=== PATIENT | female | born 1960 | race American Indian/Alaskan Native ===

== ENCOUNTER → 2017-10-29 | Outpatient (CLI) | payer OTHER ==
[~2017-10-29] MED LIST: ALPR.25 PO; AMLO5 PO; AMOCLA600S PO; AMOCLA875 PO; AMOX1XR PO; ASPI325 PO; ASPI325B; AZIT200SU PO; CONEST.625; DIAZ5; DIAZ5 PO; ESCI10 PO; ESCI20 PO; GABA100 PO; GLIP10; HYDACE10B PO; HYDACE5 PO; HYDGUAL120 PO; L-THYROXINE; LEVSOD100; LEVSOD100 PO; LEVSOD112 PO; Macrobid 100 M100 MG PO; NEOSPORIN68 ML; OMEP40CA12 PO; OTC EYE DROPS; OXYACE5T PO; OXYB5; Omeprazole20 M1 PO; PHENA200 PO; PIOG45; PIOG45 PO; PROACE100; SERT25; SULTRIDS PO; TIMO.5OPSO; TIMO.5OPSO OD; TIMO.5OPSO OS; VALS80; VALS80 PO
== END | disposition home or self-care (01) ==
LOC: LAB 16:19
DX: L02.92 Furuncle, unspecified (principal)
CPT/HCPCS: 87070; 87075; 87205

== ENCOUNTER → 2018-06-16 | Outpatient (CLI) | payer OTHER ==
[2018-06-16 13:19] LABS: Alanine Aminotransfer (ALT/SGP 19 U/L (12-78); Albumin, Blood 3.8 g/dL (3.4-5.0); Albumin/Globulin Ratio 1.2 (0.8-1.8); Alk Phos 105 U/L (50-136); Anion Gap 9 mmol/L (6-16); Aspartate Aminotrans (AST/SGOT 24 U/L (12-37); Bilirubin, Total 0.9 mg/dL (0.1-1.0); Blood Urea Nitrogen 5 mg/dL (8-24); Bun/Creatinine Ratio 6.1 (12.0-20.0); CO2, Blood 27 mmol/L (21-32); Calcium, Blood 8.7 mg/dL (8.5-10.1); Chloride, Blood 107 mmol/L (98-108); Creatinine, Blood 0.82 mg/dL (0.40-1.00); Globulin, Blood 3.1 g/dL (2.2-4.0); Glomerular Filtration Rate >60 (60-); Glucose, Blood 138 mg/dL (70-99); Potassium, Blood 3.5 mmol/L (3.5-5.5); Sodium, Blood 143 mmol/L (136-145); Total Protein, Blood 6.9 g/dL (6.4-8.2)
== END | disposition home or self-care (01) ==
LOC: LAB SHORT 12:36 → LAB 12:36
PROVIDERS: Internal Medicine Hematology & Oncology
DX: D51.8 Other vitamin B12 deficiency anemias (principal); E78.5 Hyperlipidemia, unspecified
CPT/HCPCS: 80053; 82607; 82746

== ENCOUNTER → 2018-10-07 | Outpatient (CLI) | payer OTHER ==
[2018-10-07 12:33] LABS: Source, Urine Clean Catch
[2018-10-07 15:20] LABS: Bilirubin, Urine Neg (Neg); Blood, Urine 1+ (Neg); Glucose Qualitative, Urine Neg (Neg); Ketones, Urine Neg (Neg); Leukocyte Esterase, Urine 1+ (Neg); Nitrite, Urine Neg (Neg); Protein, Urine Neg (Neg); Specific Gravity, Urine 1.005 (1.003-1.022); Urobilinogen, Urine NORM (Normal); pH, Urine 6.5 (5.0-8.0)
[2018-10-07 15:53] LABS: Appearance, Urine Clear (Clear); Color, Urine Yellow (P-Yellow)
[2018-10-07 15:54] LABS: Bacteria Mod /hpf; Squamous Epithelial Cells Few /hpf (Few)
== END | disposition home or self-care (01) ==
LOC: LAB 11:50 → LAB SHORT 11:50
PROVIDERS: Internal Medicine Hematology & Oncology
DX: N39.0 Urinary tract infection, site not specified (principal); M54.5 Low back pain
CPT/HCPCS: 81001; 87077; 87086; 87186

== ENCOUNTER → 2018-12-29 | Outpatient (CLI) | payer OTHER ==
[2018-12-29 13:50] LABS: U Amphetamine Screen Not Detected; U Barbituate Screen Not Detected; U Benzodiazapine Screen DETECTED; U Buprenorphine Screen Not Detected; U Cannabinoids Screen Not Detected; U Cocaine Screen Not Detected; U Methadone Screen Not Detected; U Methamphetamine Screen Not Detected; U Opiates Screen DETECTED; U Oxycodone Screen Not Detected; U Phencyclidine Screen Not Detected; U Propoxyphene Screen Not Detected
== END | disposition home or self-care (01) ==
LOC: LAB 12:16 → LAB SHORT 12:16
PROVIDERS: Internal Medicine Hematology & Oncology
DX: Z51.81 Encounter for therapeutic drug level monitoring (principal); F11.20 Opioid dependence, uncomplicated; Z79.899 Other long term (current) drug therapy

== ENCOUNTER → 2019-09-01 | Outpatient (CLI) | payer OTHER ==
[2019-09-01 12:34] LABS: Alanine Aminotransfer (ALT/SGP 18 U/L (12-78); Albumin, Blood 3.9 g/dL (3.4-5.0); Albumin/Globulin Ratio 1.2 (0.8-1.8); Alk Phos 123 U/L (50-136); Anion Gap 6 mmol/L (6-16); Aspartate Aminotrans (AST/SGOT 27 U/L (12-37); Bilirubin, Total 1.3 mg/dL (0.1-1.0); Blood Urea Nitrogen 6 mg/dL (8-24); Bun/Creatinine Ratio 7.8 (12.0-20.0); CO2, Blood 30 mmol/L (21-32); Calcium, Blood 8.9 mg/dL (8.5-10.1); Chloride, Blood 106 mmol/L (98-108); Creatinine, Blood 0.77 mg/dL (0.40-1.00); Globulin, Blood 3.2 g/dL (2.2-4.0); Glomerular Filtration Rate >60 (60-); Glucose, Blood 130 mg/dL (70-99); Potassium, Blood 3.5 mmol/L (3.5-5.5); Sodium, Blood 142 mmol/L (136-145); Total Protein, Blood 7.1 g/dL (6.4-8.2)
== END | disposition home or self-care (01) ==
LOC: LAB SHORT 11:57 → LAB 11:57
PROVIDERS: Internal Medicine Hematology & Oncology
DX: M25.50 Pain in unspecified joint (principal)
CPT/HCPCS: 80053

== ENCOUNTER 2020-04-26 03:11 | Emergency (ER) | payer OTHER ==
[~2020-04-26] VITALS: Ht 165.1 cm; Wt 99.8 kg
== END 2020-04-26 04:00 | disposition home or self-care (01) ==
LOC: ER 03:11
DX: G89.29 Other chronic pain (principal); M54.9 Dorsalgia, unspecified; Z91.040 Latex allergy status; Z88.8 Allergy status to other drugs, medicaments and biological substances; Z79.899 Other long term (current) drug therapy; E11.9 Type 2 diabetes mellitus without complications
CPT/HCPCS: 96372; 99283-25; J1885

== ENCOUNTER 2021-02-09 12:36 | Emergency (ER) | payer OTHER ==
[~2021-02-09] VITALS: Ht 172.7 cm; Wt 83.9 kg
[2021-02-09 13:07] LABS: BASOPHILS ABSOLUTE AUTO 0.02 K/mm3 (0.00-0.23); BASOPHILS PERCENT AUTO 0 % (0-2); EOSINOPHILS ABSOLUTE AUTO 0.05 K/mm3 (0.00-0.68); EOSINOPHILS PERCENT AUTO 1 % (0-6); Hematocrit 45.1 % (33.0-51.0); Hemoglobin 16.5 g/dL (11.5-16.0); IMMATURE GRAN ABSOLUTE AUTO 0.01 K/mm3 (0.00-0.10); IMMATURE GRAN PERCENT AUTO 0 % (0-1); LYMPHOCYTES PERCENT AUTO 46 % (21-46); MONOCYTES ABSOLUTE AUTO 0.39 K/mm3 (0.16-1.47); MONOCYTES PERCENT AUTO 8 % (4-13); Mean Corpuscular HGB 33.6 pg (26.0-34.0); Mean Corpuscular HGB Conc 36.6 g/dL (31.5-36.5); Mean Corpuscular Volume 92 fL (80-100); Mean Platelet Volume 9.9 fL (9.1-12.4); NEUTROPHILS ABSOLUTE AUTO 2.17 K/mm3 (1.96-9.15); NEUTROPHILS PERCENT AUTO 45 % (41-73); Platelet Count 134 K/mm3 (150-400); RDW Coefficient Variation 11.8 % (11.7-14.2); RDW Standard Deviation 39.7 fL (35.1-46.3); Red Blood Cell Count 4.91 M/mm3 (3.80-5.20); White Blood Cell Count 4.84 K/mm3 (4.00-11.30)
[2021-02-09 13:19] LABS: International Normalized Ratio 1.16; Prothrombin Time Results 12.4 Sec (9.7-11.5)
[2021-02-09 13:21] LABS: Source, Urine Catheter
[2021-02-09 13:25] LABS: Appearance, Urine Hazy (Clear); Blood, Urine 5+ (Neg); Color, Urine Amber (P-Yellow); Glucose Qualitative, Urine Neg (Neg); Ketones, Urine 4+ (Neg); Leukocyte Esterase, Urine 2+ (Neg); Nitrite, Urine Pos (Neg); Protein, Urine 3+ (Neg); Urobilinogen, Urine 2+ (Normal)
[2021-02-09 13:47] LABS: Bilirubin, Urine 1+ (Neg)
[2021-02-09 13:50] LABS: Alanine Aminotransfer (ALT/SGP 23 U/L (12-78); Albumin, Blood 3.9 g/dL (3.4-5.0); Albumin/Globulin Ratio 1.1 (0.8-1.8); Alk Phos 63 U/L (50-136); Anion Gap 8 mmol/L (6-16); Aspartate Aminotrans (AST/SGOT 33 U/L (12-37); Bilirubin, Total 1.6 mg/dL (0.1-1.0); Blood Urea Nitrogen 14 mg/dL (8-24); Bun/Creatinine Ratio 14.5 (12.0-20.0); CO2, Blood 24 mmol/L (21-32); Calcium, Blood 8.6 mg/dL (8.5-10.1); Chloride, Blood 107 mmol/L (98-108); Creatinine, Blood 0.97 mg/dL (0.40-1.00); Ethanol (Alcohol), Blood, Med <3 mg/dL; Globulin, Blood 3.6 g/dL (2.2-4.0); Glomerular Filtration Rate >60 (60-); Glucose, Blood 139 mg/dL (70-99); Potassium, Blood 3.1 mmol/L (3.5-5.5); Sodium, Blood 139 mmol/L (136-145); Total Protein, Blood 7.5 g/dL (6.4-8.2); Troponin I 0.019 ng/mL (0.000-0.040)
[2021-02-09 13:51] LABS: Bacteria Many /hpf; Red Blood Cells, Urine TNTC /hpf (0-2); Squamous Epithelial Cells Many /hpf (Few)
[2021-02-09 13:58] LABS: U Amphetamine Screen Not Detected; U Barbituate Screen Not Detected; U Benzodiazapine Screen DETECTED; U Buprenorphine Screen Not Detected; U Cannabinoids Screen Not Detected; U Cocaine Screen Not Detected; U Methadone Screen Not Detected; U Methamphetamine Screen Not Detected; U Opiates Screen Not Detected; U Oxycodone Screen Not Detected; U Phencyclidine Screen Not Detected; U Propoxyphene Screen Not Detected
[2021-02-09] MEDS ORDERED: NITR100CA PO (15:17)
== END 2021-02-09 15:50 | disposition home or self-care (01) ==
LOC: ER 12:36
PROVIDERS: Emergency Medicine
DX: N39.0 Urinary tract infection, site not specified (principal); R55 Syncope and collapse; R41.82 Altered mental status, unspecified; E11.9 Type 2 diabetes mellitus without complications; Z79.899 Other long term (current) drug therapy
CPT/HCPCS: 36415; 70450; 74177; 80053; 80061; 81001; 82140; 82652; 83036; 83605; 84443; 84484; 85025; 85610; 85730; 87077; 87086; 87186; 93005; 93010; 99284-25; A9270; G0480; J7030; P9612; Q9967

== ENCOUNTER 2021-04-17 01:18 | Emergency (ER) | payer OTHER ==
[~2021-04-17] VITALS: Ht 162.6 cm; Wt 94.3 kg
[~2021-04-17 01:18] MED LIST changes: +NITR100CA PO
[2021-04-17] MEDS ORDERED: PEPCID40 MG PO (01:30)
[2021-04-17] MEDS ORDERED: ZANAFLEX PO (01:32)
[2021-04-17] MEDS ORDERED: LOSA50 PO (01:32)
[2021-04-17 02:15] LABS: Calcium, Ionized (POC) 1.08 mmol/L (1.10-1.46); Chloride (POC) 102 mmol/L (98-108); Creatinine (POC) 0.8 mg/dL (0.6-1.0); Glucose (ISTAT POC) 140 mg/dL (70-99); Hemoglobin (POC) 15.6 g/dL (12.0-16.0); Potassium (POC) 3.2 mmol/L (3.5-5.5); Sodium (POC) 140 mmol/L (135-148); Total CO2 (POC) 26 mmol/L (21-32)
[2021-04-17] MEDS ORDERED: ZOLP5 PO (03:05)
== END 2021-04-17 03:25 | disposition home or self-care (01) ==
LOC: ER 01:18
PROVIDERS: Emergency Medicine
DX: F41.9 Anxiety disorder, unspecified (principal); G47.00 Insomnia, unspecified; E87.6 Hypokalemia; Z79.899 Other long term (current) drug therapy
CPT/HCPCS: 80047; 85014; 96374; 99284-25; A9270; J2060

== ENCOUNTER 2021-12-11 19:15 | Inpatient (IN) | payer OTHER ==
[~2021-12-11] VITALS: Ht 162.6 cm; Wt 89.8 kg
[~2021-12-11 19:15] MED LIST changes: +LOSA50 PO; +PEPCID40 MG PO; +ZANAFLEX PO; +ZOLP5 PO
[2021-12-11] MEDS ORDERED: ESCI10 PO (19:37)
[2021-12-11] MEDS ORDERED: LOSARTAN PO (19:37)
[2021-12-11] MEDS ORDERED: IBUP400 PO (19:38)
[2021-12-11] MEDS ORDERED: Masophen500 MG PO (19:39)
[2021-12-11 20:08] LABS: BASOPHILS PERCENT AUTO 0 % (0-2); EOSINOPHILS ABSOLUTE AUTO 0.02 K/mm3 (0.00-0.68); EOSINOPHILS PERCENT AUTO 1 % (0-6); Hematocrit 41.3 % (33.0-51.0); Hemoglobin 14.6 g/dL (11.5-16.0); IMMATURE GRAN ABSOLUTE AUTO 0.01 K/mm3 (0.00-0.10); IMMATURE GRAN PERCENT AUTO 0 % (0-1); LYMPHOCYTES ABSOLUTE AUTO 1.28 K/mm3 (0.84-5.20); LYMPHOCYTES PERCENT AUTO 42 % (21-46); MONOCYTES ABSOLUTE AUTO 0.19 K/mm3 (0.16-1.47); MONOCYTES PERCENT AUTO 6 % (4-13); Mean Corpuscular HGB 32.4 pg (26.0-34.0); Mean Corpuscular HGB Conc 35.4 g/dL (31.5-36.5); Mean Corpuscular Volume 92 fL (80-100); Mean Platelet Volume 10.3 fL (9.1-12.4); NEUTROPHILS ABSOLUTE AUTO 1.53 K/mm3 (1.96-9.15); NEUTROPHILS PERCENT AUTO 51 % (41-73); Platelet Count 124 K/mm3 (150-400); RDW Coefficient Variation 12.8 % (11.7-14.2); RDW Standard Deviation 42.5 fL (35.1-46.3); Red Blood Cell Count 4.51 M/mm3 (3.80-5.20); White Blood Cell Count 3.03 K/mm3 (4.00-11.30)
[2021-12-11 20:23] LABS: Alanine Aminotransfer (ALT/SGP 21 U/L (12-78); Albumin, Blood 3.5 g/dL (3.4-5.0); Albumin/Globulin Ratio 1.2 (0.8-1.8); Alk Phos 62 U/L (50-136); Anion Gap 10 mmol/L (6-16); Aspartate Aminotrans (AST/SGOT 27 U/L (12-37); Bilirubin, Total 1.8 mg/dL (0.1-1.0); Blood Urea Nitrogen 11 mg/dL (8-24); CO2, Blood 26 mmol/L (21-32); Calcium, Blood 8.6 mg/dL (8.5-10.1); Chloride, Blood 103 mmol/L (98-108); Creatinine, Blood 0.78 mg/dL (0.40-1.00); Glomerular Filtration Rate >60 (60-); Glucose, Blood 190 mg/dL (70-99); Sodium, Blood 139 mmol/L (136-145); Total Protein, Blood 6.5 g/dL (6.4-8.2)
[2021-12-12] MEDS ORDERED: FAMO20 PO (01:25)
[2021-12-12 03:36] LABS: BASOPHILS ABSOLUTE AUTO 0.01 K/mm3 (0.00-0.23); BASOPHILS PERCENT AUTO 0 % (0-2); EOSINOPHILS ABSOLUTE AUTO 0.02 K/mm3 (0.00-0.68); EOSINOPHILS PERCENT AUTO 1 % (0-6); Hematocrit 41.4 % (33.0-51.0); Hemoglobin 14.9 g/dL (11.5-16.0); IMMATURE GRAN PERCENT AUTO 0 % (0-1); LYMPHOCYTES ABSOLUTE AUTO 1.63 K/mm3 (0.84-5.20); LYMPHOCYTES PERCENT AUTO 41 % (21-46); MONOCYTES ABSOLUTE AUTO 0.26 K/mm3 (0.16-1.47); MONOCYTES PERCENT AUTO 7 % (4-13); Mean Corpuscular HGB 32.5 pg (26.0-34.0); Mean Corpuscular Volume 90 fL (80-100); Mean Platelet Volume 10.4 fL (9.1-12.4); NEUTROPHILS ABSOLUTE AUTO 2.02 K/mm3 (1.96-9.15); NEUTROPHILS PERCENT AUTO 51 % (41-73); Platelet Count 145 K/mm3 (150-400); RDW Coefficient Variation 12.7 % (11.7-14.2); RDW Standard Deviation 41.3 fL (35.1-46.3); Red Blood Cell Count 4.59 M/mm3 (3.80-5.20); White Blood Cell Count 3.94 K/mm3 (4.00-11.30)
[2021-12-12 03:54] LABS: Anion Gap 9 mmol/L (6-16); Blood Urea Nitrogen 10 mg/dL (8-24); Bun/Creatinine Ratio 14.5 (12.0-20.0); CO2, Blood 26 mmol/L (21-32); Calcium, Blood 8.7 mg/dL (8.5-10.1); Chloride, Blood 104 mmol/L (98-108); Creatinine, Blood 0.69 mg/dL (0.40-1.00); Glomerular Filtration Rate >60 (60-); Glucose, Blood 125 mg/dL (70-99); Sodium, Blood 139 mmol/L (136-145)
--- NOTE | 2021-12-12 05:51 | NUR ---
SHIFT SUMMARY PT ALERT AND ORIENTED X 4. HR STABLE. BP STABLE. NO CP OR PRESURE. PHARMACIST NOTIFIED OF CRITICAL APTT. PLAN TO CONT HEPARIN GTT, SEE EHR. PT ABLE TO TURN SELF IN BED. SBA TO COMMODE. INITIAL ADMISSION SCREENING NOT FINISHED D/T PT NOT KNOWING ALL ALLERGIES. PT STATED "ALLERGIC TO AN ANTIBIOTIC BUT UNSURE WHAT ONE, HAS SEVERE REACTION TO MEDICATION." PT REPORTS PAIN THAT IS CHRONIC, MEDICATED PER EMAR. PT REPORTS RELIEF. OXYGEN SATURATION MAINTAINED ABOVE 95% ON RA. CALL LIGHT WITHIN REACH. PT NPO SINCE MIDNIGHT. WILL CONT TO MONITOR UNTIL REPORT GIVEN TO DAYSHIFT RN.
[2021-12-12 09:55] LABS: CHOL/HDL RATIO 2.6; Cholesterol 151 mg/dL (50-200); HDL Cholesterol 57 mg/dL (>39); LDL/HDL RATIO 1.4; Low Density Lipoprotein Chol 79 mg/dL (0-110); Thyroid Stimulating Hormone 0.091 uIU/mL (0.360-4.800); Triglycerides 73 mg/dL (30-160); Very Low Density Lipoprot Chol 14 mg/dL (6-32)
[2021-12-12 10:25] LABS: Influenza A, PCR NEGATIVE (NEGATIVE); Influenza B, PCR NEGATIVE (NEGATIVE); Resp Syncytial Virus, PCR NEGATIVE (NEGATIVE); SARS-Cov-2 (COVID-19) PCR, MMC NEGATIVE (NEGATIVE)
[2021-12-12 13:09] LABS: Source, Urine Clean Catch
[2021-12-12 13:42] LABS: U Amphetamine Screen Not Detected; U Barbituate Screen Not Detected; U Benzodiazapine Screen DETECTED; U Buprenorphine Screen Not Detected; U Cannabinoids Screen Not Detected; U Cocaine Screen Not Detected; U Methadone Screen Not Detected; U Methamphetamine Screen Not Detected; U Opiates Screen DETECTED; U Oxycodone Screen Not Detected; U Phencyclidine Screen Not Detected; U Propoxyphene Screen Not Detected
[2021-12-12 14:17] LABS: Bilirubin, Urine Neg (Neg); Blood, Urine Neg (Neg); Glucose Qualitative, Urine Neg (Neg); Ketones, Urine 4+ (Neg); Leukocyte Esterase, Urine Neg (Neg); Nitrite, Urine Neg (Neg); Protein, Urine Neg (Neg); Urobilinogen, Urine 2+ (Normal)
[2021-12-12 14:18] LABS: Appearance, Urine Clear (Clear); Color, Urine Amber (P-Yellow)
--- NOTE | 2021-12-12 15:55 | NUR ---
END OF SHIFT SUMMARY: PATIENT IS ALERT AND ORIENTED, ANXIETY HAS RESOLVED AFTER CATHETERIZATION. ANGIO, NO STENTS IN PLACE DIET ORDERED PATIENT EATING NOW. PATIENT HAS BEEN SINUS 60-80'S, DENIES CHEST PAIN OR SOB. NO LONGER HAVING THE NAUSEA SHE HAD AT ARRIVAL. PATIENT PAIN CONTROLLED VIA EMAR MEDICATIONS. AMBULATED TO BATHROOM AND NO WORRIES, THE 2ND TR BAND THAT IS ON THE RADIAL SITE HAS BEEN REMOVED, AND 1ST TR BAND WHICH IS COVERING THE OPSITE STILL INFLATTED WITH THE ARRIVAL AIR. ARMBOARD IN PLACE, EDUCATION GIVEN ON IMPORTANCE OF REHABILITATING SITE. PATIENT TO STAY OVERNIGHT FOR OBSERVATION. HAS BEEN HAVING BM'S AND URINATING. FLUIDS HAVE BEEN RUNNING AT 125 SINCE THE START OF SHIFT, ROUGHLY 2L WELL ORAL INTAKE. WILL CONTINUE TO MONITOR AT THIS TIME.
[2021-12-12 16:25] LABS: Anion Gap 9 mmol/L (6-16); Blood Urea Nitrogen 8 mg/dL (8-24); Bun/Creatinine Ratio 10.2 (12.0-20.0); CO2, Blood 21 mmol/L (21-32); Calcium, Blood 8.3 mg/dL (8.5-10.1); Chloride, Blood 109 mmol/L (98-108); Creatinine, Blood 0.78 mg/dL (0.40-1.00); Glomerular Filtration Rate >60 (60-); Glucose, Blood 186 mg/dL (70-99); Potassium, Blood 3.6 mmol/L (3.5-5.5); Sodium, Blood 139 mmol/L (136-145)
--- NOTE | 2021-12-12 23:00 | NUR ---
TR BAND REMOVAL 2 ML OF AIR REMOVED FROM TR BAND Q15-30 MINUTES UNTIL ALL AIR REMOVED STARTING AT 2000. TR BAND DEFLATED AT 2130. TR BAND IN PLACE FOR 1 HOUR POST DEFLATION. SITE CLEANED WITH CHLORAPREP AND TEGARDERM PLACED OVER SITE. PULSES STRONG. NO HEMATOMA FORMATION. SITE WNL. ARM BOARD IN PLACE. WILL CONT TO MONITOR.
[2021-12-13 03:47] LABS: BASOPHILS ABSOLUTE AUTO 0.02 K/mm3 (0.00-0.23); BASOPHILS PERCENT AUTO 1 % (0-2); EOSINOPHILS ABSOLUTE AUTO 0.05 K/mm3 (0.00-0.68); EOSINOPHILS PERCENT AUTO 2 % (0-6); Hemoglobin 13.4 g/dL (11.5-16.0); IMMATURE GRAN PERCENT AUTO 0 % (0-1); LYMPHOCYTES ABSOLUTE AUTO 1.49 K/mm3 (0.84-5.20); LYMPHOCYTES PERCENT AUTO 47 % (21-46); MONOCYTES ABSOLUTE AUTO 0.27 K/mm3 (0.16-1.47); MONOCYTES PERCENT AUTO 9 % (4-13); Mean Corpuscular HGB 32.9 pg (26.0-34.0); Mean Corpuscular HGB Conc 35.3 g/dL (31.5-36.5); Mean Corpuscular Volume 93 fL (80-100); Mean Platelet Volume 10.2 fL (9.1-12.4); NEUTROPHILS ABSOLUTE AUTO 1.34 K/mm3 (1.96-9.15); NEUTROPHILS PERCENT AUTO 42 % (41-73); Platelet Count 114 K/mm3 (150-400); RDW Coefficient Variation 13.2 % (11.7-14.2); RDW Standard Deviation 45.1 fL (35.1-46.3); Red Blood Cell Count 4.07 M/mm3 (3.80-5.20); White Blood Cell Count 3.17 K/mm3 (4.00-11.30)
[2021-12-13 04:05] LABS: Anion Gap 6 mmol/L (6-16); Blood Urea Nitrogen 12 mg/dL (8-24); Bun/Creatinine Ratio 14.9 (12.0-20.0); CO2, Blood 27 mmol/L (21-32); Calcium, Blood 7.9 mg/dL (8.5-10.1); Chloride, Blood 110 mmol/L (98-108); Creatinine, Blood 0.81 mg/dL (0.40-1.00); Glomerular Filtration Rate >60 (60-); Glucose, Blood 171 mg/dL (70-99); Potassium, Blood 3.4 mmol/L (3.5-5.5); Sodium, Blood 143 mmol/L (136-145)
--- NOTE | 2021-12-13 05:44 | NUR ---
SHIFT SUMMARY PT ALERT AND ORIENTED X 4. HR BRADYCARDIC WHILE ASLEEP, SEE EHR. PT IN NSR IN 60'S-70'S WHEN AWAKE. BP STABLE. OXYGEN SATURATION MAINTAINED ABOVE 92% ON RA. NO CP OR PRESSURE. R RADIAL SITE WNL. TR BAND RECOVERED, SEE NOTES. R RADIAL PULSE STRONG. NO HEMATOMA FORMATION. ARM BOARD IN PLACE. PT HAD 10 BEAT RUN OF VTACH, ASYMTPOMATIC VSS. PHYSICIAN NOTIFIED AND ORDERS FOR AM MAG LEVEL AND BNP. PT SBA TO BATHROOM. ABLE TO TURN SELF IN BED NEEDED. NS GTT AT 125 ML/HR. WILL CONT TO MONITOR UNTIL REPORT GIVEN TO DEEPA RN.
--- NOTE | 2021-12-13 06:56 | NUR ---
UPDATE PT VOMITTED AFTER HAVING ONE 20 MEQ POSTASSIUM PO. PT UNABLE TO TOLERATE TEXTURE/TASTE. DR. JENNINGS NOTIFIED, ORDERS FOR 40 MEQ IV ONCE.
--- NOTE | 2021-12-13 07:18 | NUR ---
Late Note. On 12/12/21, I provided a spiritual care visit for pt. Pt admits to being scared and nervous about an upcoming angiogram for later in the day. I provide prayer and emotional support. Pt voices appreciation and states that she is much more at peace and that it was perfect timing that I would stop by and pray with her. I will continue to remain available to pt and family.
[2021-12-13] MEDS ORDERED: ASPI81CH PO (10:06)
[2021-12-13] MEDS ORDERED: CEPH500 PO (10:07)
[2021-12-13] MEDS ORDERED: ATOR10 PO (10:07)
[2021-12-13] MEDS ORDERED: CLOP75 PO (10:08)
[2021-12-13] MEDS ORDERED: METO25ER PO (10:09)
--- NOTE | 2021-12-13 10:57 | NUR ---
PT DISCHARGED TO HOME TODAY WITH DISCHARGE ORDERS. PT DENIES CHEST PAIN, MEDICATED FOR BACK PAIN X1. VITALS HAS BEEN STABLE. PT INDEPENDENT IN THE ROOM. ZIO PATCH PLACED PRIOR TO DC. PT TO FOLLOW UP WITH DR JENNINGS AND PCP WITHIN 2 WEEKS. ALL NEW MEDICATIONS AND DISCHARGE INSTRUCTIONS DISCLOSED WITH THE PT, PT VERBALIZED UNDERSTANDING. NO OTHER ISSUES REPORTED FOR THE SHIFT. ALL BELONGINGS SENT WITH THE PT, PT ACCOMPANIED BY PCT VIA WHEELCHAIR
--- NOTE | 2021-12-13 11:41 | NUR ---
Received referral from nurse care management assistant (Charlotte Larson) on 12/12/2021. Patient discharged 12/13/2021 with orders for home health and elected [facility]. Contacted patient at number provided on demographic sheet to further discuss the above. Patient is agreeable to the above. Discussed homebound status definition with patient. Patient verbalized understanding. Discussed what home health is vs what it is not (in home caregivers/housekeeping). Patient verbalized understanding. Discussed the next steps in the process of an initial assessment to determine frequency of visits. Again patient verbalized understanding. Offered a chance for patient to ask questions regarding the above of which there were none. Gathered all supporting documentation for referral (face sheet, face to face, med list, and H&P,) and sent to [facility] for review. No further interventions required. Lawanda Fung Referral Liaison
--- NOTE | 2021-12-13 11:44 | NUR ---
Patient is getting ready for d/c today. Patient states how meaningful the prayer was to her the prior day before surgery. I provide prayer and a blessing. Patient again responds with gratitude.
== END 2021-12-13 10:50 | disposition home or self-care (01) | DRG 281 ==
LOC: ER 19:15 → PCU 12-12 00:01
PROVIDERS: Emergency Medicine; Family Medicine; Internal Medicine Cardiovascular Disease; ADMIT Internal Medicine
PROC: 4A023N7 Measurement of Cardiac Sampling and Pressure, Left Heart, Percutaneous Approach (ICD-10-PCS; principal; 2021-12-12)
PROC: B2111ZZ Fluoroscopy of Multiple Coronary Arteries using Low Osmolar Contrast (ICD-10-PCS; 2021-12-12)
DX: I21.4 Non-ST elevation (NSTEMI) myocardial infarction (principal); I47.2 Ventricular tachycardia; N39.0 Urinary tract infection, site not specified; Z20.822 Contact with and (suspected) exposure to COVID-19; E87.6 Hypokalemia; Z68.31 Body mass index [BMI] 31.0-31.9, adult; E83.42 Hypomagnesemia; I25.10 Atherosclerotic heart disease of native coronary artery without angina pectoris; E11.9 Type 2 diabetes mellitus without complications; I10 Essential (primary) hypertension; E03.9 Hypothyroidism, unspecified; Z28.21 Immunization not carried out because of patient refusal; F41.9 Anxiety disorder, unspecified; M54.9 Dorsalgia, unspecified; F40.00 Agoraphobia, unspecified; G89.29 Other chronic pain; E66.9 Obesity, unspecified; Z60.2 Problems related to living alone; M79.7 Fibromyalgia; F32.A Depression, unspecified; Z88.8 Allergy status to other drugs, medicaments and biological substances; Z91.040 Latex allergy status; Z79.82 Long term (current) use of aspirin; Z79.899 Other long term (current) drug therapy; Z90.710 Acquired absence of both cervix and uterus
CPT/HCPCS: 0241U; 36415; 70450; 71045; 71260; 76937; 80048; 80053; 80061; 81003; 82947; 83735; 83880; 84443; 84484; 85025; 85520; 85730; 93005; 93010; 93246; 93306; 93454; 96374; 99152; 99153; 99285-25; A9270; C1769; C1887; C1894; J1644; J2250; J3010; J3475; J3480; J7030; J7050; Q9967

== ENCOUNTER 2022-01-18 13:24 | Emergency (ER) | payer OTHER ==
[~2022-01-18] VITALS: Ht 162.6 cm; Wt 85.7 kg
[~2022-01-18 13:24] MED LIST changes: +ASPI81CH PO; +ATOR10 PO; +CEPH500 PO; +CLOP75 PO; +FAMO20 PO; +IBUP400 PO; +LOSARTAN PO; +METO25ER PO; +Masophen500 MG PO
[2022-01-18 14:53] LABS: BASOPHILS ABSOLUTE AUTO 0.01 K/mm3 (0.00-0.23); BASOPHILS PERCENT AUTO 0 % (0-2); EOSINOPHILS ABSOLUTE AUTO 0.04 K/mm3 (0.00-0.68); EOSINOPHILS PERCENT AUTO 1 % (0-6); Hematocrit 41.9 % (33.0-51.0); Hemoglobin 14.7 g/dL (11.5-16.0); IMMATURE GRAN PERCENT AUTO 0 % (0-1); LYMPHOCYTES ABSOLUTE AUTO 1.17 K/mm3 (0.84-5.20); LYMPHOCYTES PERCENT AUTO 29 % (21-46); MONOCYTES ABSOLUTE AUTO 0.28 K/mm3 (0.16-1.47); MONOCYTES PERCENT AUTO 7 % (4-13); Mean Corpuscular HGB 32.9 pg (26.0-34.0); Mean Corpuscular HGB Conc 35.1 g/dL (31.5-36.5); Mean Corpuscular Volume 94 fL (80-100); Mean Platelet Volume 9.8 fL (9.1-12.4); NEUTROPHILS ABSOLUTE AUTO 2.49 K/mm3 (1.96-9.15); NEUTROPHILS PERCENT AUTO 62 % (41-73); Platelet Count 110 K/mm3 (150-400); RDW Coefficient Variation 12.7 % (11.7-14.2); RDW Standard Deviation 44.1 fL (35.1-46.3); Red Blood Cell Count 4.47 M/mm3 (3.80-5.20); White Blood Cell Count 3.99 K/mm3 (4.00-11.30)
[2022-01-18 15:25] LABS: Alanine Aminotransfer (ALT/SGP 21 U/L (12-78); Albumin, Blood 3.6 g/dL (3.4-5.0); Albumin/Globulin Ratio 1.1 (0.8-1.8); Alk Phos 84 U/L (50-136); Anion Gap 9 mmol/L (6-16); Aspartate Aminotrans (AST/SGOT 22 U/L (12-37); Bilirubin, Total 1.6 mg/dL (0.1-1.0); Blood Urea Nitrogen 11 mg/dL (8-24); Bun/Creatinine Ratio 15.1 (12.0-20.0); CO2, Blood 27 mmol/L (21-32); Calcium, Blood 8.6 mg/dL (8.5-10.1); Chloride, Blood 104 mmol/L (98-108); Creatinine, Blood 0.73 mg/dL (0.40-1.00); Globulin, Blood 3.4 g/dL (2.2-4.0); Glomerular Filtration Rate >60 (60-); Glucose, Blood 136 mg/dL (70-99); Potassium, Blood 3.6 mmol/L (3.5-5.5); Sodium, Blood 140 mmol/L (136-145)
[2022-01-18] MEDS ORDERED: LIDO700A20 TOP (19:18)
[2022-01-18] MEDS ORDERED: Robaxin750 MG PO (19:18)
== END 2022-01-18 20:38 | disposition home or self-care (01) ==
LOC: ER 13:24
PROVIDERS: Physician Assistant
DX: M25.532 Pain in left wrist (principal); M25.531 Pain in right wrist; M25.512 Pain in left shoulder; M25.511 Pain in right shoulder; R20.8 Other disturbances of skin sensation; E03.9 Hypothyroidism, unspecified; I10 Essential (primary) hypertension; I25.2 Old myocardial infarction; K21.9 Gastro-esophageal reflux disease without esophagitis; E11.9 Type 2 diabetes mellitus without complications; Z79.899 Other long term (current) drug therapy; Z91.040 Latex allergy status
CPT/HCPCS: 71045; 72141; 80053; 84484; 85025; 93005; 93010; 96374; 96375; 99284-25; J2060; J2270

== ENCOUNTER → 2022-05-07 | Outpatient (CLI) | payer OTHER ==
[~2022-05-07] MED LIST changes: +LIDO700A20 TOP; +QUETIAPINE FUMA50 M2 PO; +Robaxin750 MG PO; +SEROQUEL100 MG PO
[2022-05-07 17:48] LABS: Source, Urine Clean Catch
[2022-05-07 19:23] LABS: Appearance, Urine Clear (Clear); Bilirubin, Urine Neg (Neg); Blood, Urine 1+ (Neg); Color, Urine Yellow (P-Yellow); Glucose Qualitative, Urine Neg (Neg); Ketones, Urine 1+ (Neg); Leukocyte Esterase, Urine 2+ (Neg); Nitrite, Urine Neg (Neg); Protein, Urine 1+ (Neg); Urobilinogen, Urine NORM (Normal)
[2022-05-07 19:41] LABS: Bacteria Few /hpf; Mucus Mod (0-Heavy); Red Blood Cells, Urine 0-2 /hpf (0-2); Squamous Epithelial Cells Few /hpf (Few)
== END ==
LOC: LAB SHORT 10:25 → LAB 10:25
PROVIDERS: Nurse Practitioner Family
DX: R30.0 Dysuria (principal)
CPT/HCPCS: 81001

== ENCOUNTER 2024-02-22 06:08 | Emergency (ER) | payer OTHER ==
[~2024-02-22] VITALS: Ht 160 cm; Wt 99.8 kg
[~2024-02-22 06:08] MED LIST changes: +ACET325 PO; +DILT30 PO; -LEVSOD112 PO; +LEVSOD150 PO; -Masophen500 MG PO
[2024-02-22] MEDS ORDERED: HYDROcodone 10-APAP 325 TAB PO ONE (08:30)
[2024-02-22 08:42] LABS: BASOPHILS ABSOLUTE AUTO 0.01 K/mm3 (0.00-0.23); BASOPHILS PERCENT AUTO 0 % (0-2); EOSINOPHILS ABSOLUTE AUTO 0.08 K/mm3 (0.00-0.68); EOSINOPHILS PERCENT AUTO 2 % (0-6); Hematocrit 44.8 % (33.0-51.0); Hemoglobin 16.2 g/dL (11.5-16.0); IMMATURE GRAN ABSOLUTE AUTO 0.01 K/mm3 (0.00-0.10); IMMATURE GRAN PERCENT AUTO 0 % (0-1); LYMPHOCYTES ABSOLUTE AUTO 1.64 K/mm3 (0.84-5.20); LYMPHOCYTES PERCENT AUTO 32 % (21-46); MONOCYTES PERCENT AUTO 6 % (4-13); Mean Corpuscular HGB 32.7 pg (26.0-34.0); Mean Corpuscular HGB Conc 36.2 g/dL (31.5-36.5); Mean Corpuscular Volume 91 fL (80-100); Mean Platelet Volume 10.7 fL (9.1-12.4); NEUTROPHILS ABSOLUTE AUTO 3.12 K/mm3 (1.96-9.15); NEUTROPHILS PERCENT AUTO 60 % (41-73); Platelet Count 162 K/mm3 (150-400); RDW Standard Deviation 39.7 fL (35.1-46.3); Red Blood Cell Count 4.95 M/mm3 (3.80-5.20); White Blood Cell Count 5.16 K/mm3 (4.00-11.30)
[2024-02-22 08:54] LABS: Albumin, Blood 4.2 g/dL (3.4-5.0); Albumin/Globulin Ratio 1.1 (0.8-1.8); Bilirubin, Total 1.2 mg/dL (0.1-1.0); Bun/Creatinine Ratio 13.9 (12.0-20.0); Calcium, Blood 9.7 mg/dL (8.5-10.1); Creatinine, Blood 0.79 mg/dL (0.40-1.00); Globulin, Blood 3.7 g/dL (2.2-4.0); Potassium, Blood 3.4 mmol/L (3.5-5.5); Total Protein, Blood 7.9 g/dL (6.4-8.2)
[2024-02-22 12:38] LABS: Source, Urine Clean Catch
[2024-02-22 12:43] LABS: Appearance, Urine Clear (Clear); Bilirubin, Urine Neg (Neg); Blood, Urine Neg (Neg); Color, Urine Yellow (P-Yellow); Glucose Qualitative, Urine 1+ (Neg); Ketones, Urine 2+ (Neg); Leukocyte Esterase, Urine 2+ (Neg); Nitrite, Urine Neg (Neg); Protein, Urine Neg (Neg); Specific Gravity, Urine 1.015 (1.003-1.022); Urobilinogen, Urine NORM (Normal)
[2024-02-22 12:52] LABS: Bacteria Few /hpf; Mucus Light (0-Heavy); Squamous Epithelial Cells Few /hpf (Few)
[2024-02-22 12:56] LABS: U Amphetamine Screen Not Detected; U Barbituate Screen Not Detected; U Benzodiazapine Screen Not Detected; U Buprenorphine Screen Not Detected; U Cannabinoids Screen Not Detected; U Cocaine Screen Not Detected; U Methadone Screen Not Detected; U Methamphetamine Screen Not Detected; U Opiates Screen DETECTED; U Oxycodone Screen Not Detected; U Phencyclidine Screen Not Detected
[2024-02-22] MEDS ORDERED: Clopidogrel Bisulfate 75 MG Tab PO SCH (15:10)
[2024-02-22] MEDS ORDERED: Aspirin 81 MG TabEC PO SCH (15:10)
[2024-02-22] MEDS ORDERED: Acetaminophen 500 MG Tab PO PRN (15:10)
[2024-02-22] MEDS ORDERED: Losartan Potassium 25 MG Tab PO SCH (15:10)
[2024-02-22] MEDS ORDERED: HYDROcodone 10-APAP 325 TAB PO PRN (15:15)
[2024-02-22] MEDS ORDERED: Ondansetron 4 MG SoluTab SL ONE (16:50)
[2024-02-22 16:51] VITALS: BP 149/98
[2024-02-23] MEDS ORDERED: Levothyroxine Sodium 0.1 MG Tab PO SCH (06:00)
[2024-02-25] MEDS ORDERED: TRAZ50 PO (23:50)
[2024-02-26] MEDS ORDERED: QUET100 PO (11:30)
[2024-02-26] MEDS ORDERED: METF500 PO (11:30)
[2024-02-26] MEDS ORDERED: DILT120 PO (11:35)
== END 2024-02-22 17:15 | disposition other institution (70) ==
LOC: ER 06:08 → EOR 06:09 → ER 06:09
PROVIDERS: Emergency Medicine
DX: F32.A Depression, unspecified (principal); E11.65 Type 2 diabetes mellitus with hyperglycemia; Z88.8 Allergy status to other drugs, medicaments and biological substances; Z91.040 Latex allergy status; Z79.899 Other long term (current) drug therapy; Z79.82 Long term (current) use of aspirin; Z79.02 Long term (current) use of antithrombotics/antiplatelets; I10 Essential (primary) hypertension; E03.9 Hypothyroidism, unspecified; K21.9 Gastro-esophageal reflux disease without esophagitis; G47.00 Insomnia, unspecified
CPT/HCPCS: 36415; 80053; 81001; 85025; 87086; 93005; 93010; 99285-25; A9270; G0378

== ENCOUNTER 2024-03-21 12:38 | Inpatient (IN) | payer OTHER ==
[~2024-03-21] VITALS: Ht 160 cm; Wt 102.1 kg
[~2024-03-21 12:38] MED LIST changes: +DILT120 PO; -LOSA50 PO; +LOSARTAN POTAS100 M1 PO; +METF500 PO; +QUET100 PO; +TRAZ50 PO
[2024-03-21] MEDS ORDERED: HYDROcodone 10-APAP 325 TAB PO PRN (15:25)
[2024-03-21 16:43] LABS: BASOPHILS ABSOLUTE AUTO 0.01 K/mm3 (0.00-0.23); BASOPHILS PERCENT AUTO 0 % (0-2); EOSINOPHILS ABSOLUTE AUTO 0.04 K/mm3 (0.00-0.68); EOSINOPHILS PERCENT AUTO 1 % (0-6); Hematocrit 42.6 % (33.0-51.0); Hemoglobin 14.8 g/dL (11.5-16.0); IMMATURE GRAN ABSOLUTE AUTO 0.01 K/mm3 (0.00-0.10); IMMATURE GRAN PERCENT AUTO 0 % (0-1); LYMPHOCYTES ABSOLUTE AUTO 1.47 K/mm3 (0.84-5.20); LYMPHOCYTES PERCENT AUTO 37 % (21-46); MONOCYTES ABSOLUTE AUTO 0.26 K/mm3 (0.16-1.47); MONOCYTES PERCENT AUTO 7 % (4-13); Mean Corpuscular HGB 32.3 pg (26.0-34.0); Mean Corpuscular HGB Conc 34.7 g/dL (31.5-36.5); Mean Corpuscular Volume 93 fL (80-100); Mean Platelet Volume 9.9 fL (9.1-12.4); NEUTROPHILS ABSOLUTE AUTO 2.14 K/mm3 (1.96-9.15); NEUTROPHILS PERCENT AUTO 54 % (41-73); Platelet Count 140 K/mm3 (150-400); RDW Coefficient Variation 12.8 % (11.7-14.2); RDW Standard Deviation 43.7 fL (35.1-46.3); Red Blood Cell Count 4.58 M/mm3 (3.80-5.20); White Blood Cell Count 3.93 K/mm3 (4.00-11.30)
[2024-03-21 17:11] LABS: Albumin, Blood 3.8 g/dL (3.4-5.0); Albumin/Globulin Ratio 1.1 (0.8-1.8); Bilirubin, Total 0.9 mg/dL (0.1-1.0); Bun/Creatinine Ratio 13.3 (12.0-20.0); Calcium, Blood 8.7 mg/dL (8.5-10.1); Creatinine, Blood 0.75 mg/dL (0.40-1.00); Globulin, Blood 3.5 g/dL (2.2-4.0); Potassium, Blood 3.5 mmol/L (3.5-5.5); Total Protein, Blood 7.3 g/dL (6.4-8.2)
[2024-03-21 17:17] LABS: CHOL/HDL RATIO 1.8; Cholesterol 136 mg/dL (50-200); HDL Cholesterol 76 mg/dL (>39); LDL/HDL RATIO 0.6; Low Density Lipoprotein Chol 44 mg/dL (0-110); Triglycerides 79 mg/dL (30-160); Very Low Density Lipoprot Chol 15 mg/dL (6-32)
[2024-03-21] MEDS ORDERED: HyDROXyzine HCl 25 MG Tab PO ONE (19:55)
[2024-03-21] MEDS ORDERED: LORazepam 1 MG Tab PO ONE (20:45)
[2024-03-21] MEDS ORDERED: QUEtiapine Fumarate 100 MG Tab PO ONE (23:25)
[2024-03-22 06:12] LABS: Source, Urine Clean Catch
[2024-03-22 06:14] LABS: Bilirubin, Urine Neg (Neg); Blood, Urine Neg (Neg); Glucose Qualitative, Urine Neg (Neg); Ketones, Urine 3+ (Neg); Leukocyte Esterase, Urine 3+ (Neg); Nitrite, Urine Neg (Neg); Protein, Urine Neg (Neg); Urobilinogen, Urine 1+ (Normal); pH, Urine 6.5 (5.0-8.0)
[2024-03-22 06:17] LABS: Appearance, Urine Hazy (Clear); Color, Urine Yellow (P-Yellow)
[2024-03-22 06:24] LABS: Bacteria Mod /hpf; Mucus Light (0-Heavy); Red Blood Cells, Urine 0-2 /hpf (0-2); Squamous Epithelial Cells Many /hpf (Few)
[2024-03-22 12:40] LABS: U Amphetamine Screen Not Detected; U Barbituate Screen Not Detected; U Benzodiazapine Screen DETECTED; U Buprenorphine Screen Not Detected; U Cannabinoids Screen Not Detected; U Cocaine Screen Not Detected; U Methadone Screen Not Detected; U Methamphetamine Screen Not Detected; U Opiates Screen DETECTED; U Oxycodone Screen Not Detected; U Phencyclidine Screen Not Detected
[2024-03-22] MEDS ORDERED: Acetaminophen 325 MG TABLET PO PRN (14:15)
[2024-03-22] MEDS ORDERED: CefTRIAXone Sodium 1,000 MG in NS 100 ML IV SCH (14:30)
[2024-03-22 15:00] LABS: Source, Urine Clean Catch
[2024-03-22 15:12] LABS: Appearance, Urine Clear (Clear); Bilirubin, Urine Neg (Neg); Blood, Urine Neg (Neg); Color, Urine Yellow (P-Yellow); Glucose Qualitative, Urine 3+ (Neg); Ketones, Urine 3+ (Neg); Leukocyte Esterase, Urine 1+ (Neg); Nitrite, Urine Neg (Neg); Protein, Urine 2+ (Neg); Specific Gravity, Urine 1.015 (1.003-1.022); Urobilinogen, Urine 1+ (Normal)
[2024-03-22 15:34] LABS: Bacteria Few /hpf; Red Blood Cells, Urine Not Seen /hpf (0-2); Squamous Epithelial Cells Few /hpf (Few)
[2024-03-22] MEDS ORDERED: Losartan Potassium 50 MG Tab PO SCH (16:00)
[2024-03-22] MEDS ORDERED: Insulin Human Lispro 100 Units/ML 3ML Syringe SC SCH (16:30)
[2024-03-22] MEDS ORDERED: DILT30 PO (17:17)
[2024-03-22 20:59] VITALS: BP 144/84
[2024-03-22] MEDS ORDERED: Lactobacil 2-S.Thermo-Bifido 1 1 Cap PO SCH (21:00)
[2024-03-22] MEDS ORDERED: Atorvastatin 10 MG Tab PO SCH (21:00)
[2024-03-22] MEDS ORDERED: QUEtiapine Fumarate 100 MG Tab PO SCH (21:00)
[2024-03-22] MEDS ORDERED: LORazepam 1 MG Tab PO ONE (22:25)
[2024-03-23 03:18] VITALS: BP 122/78
[2024-03-23] MEDS ORDERED: OLANZapine 5 MG Tab PO ONE (04:25)
[2024-03-23 05:47] LABS: Albumin, Blood 3.6 g/dL (3.4-5.0); Albumin/Globulin Ratio 1.1 (0.8-1.8); Bilirubin, Total 0.9 mg/dL (0.1-1.0); Calcium, Blood 8.9 mg/dL (8.5-10.1); Creatinine, Blood 0.78 mg/dL (0.40-1.00); Globulin, Blood 3.3 g/dL (2.2-4.0); Potassium, Blood 3.2 mmol/L (3.5-5.5); Total Protein, Blood 6.9 g/dL (6.4-8.2)
[2024-03-23] MEDS ORDERED: Levothyroxine Sodium 0.1 MG Tab PO SCH (06:00)
--- NOTE | 2024-03-23 06:36 | NUR ---
SHIFT SUMMARY PT ARRIVED TO ROOM 347 FROM THE ER VIA A WHEELCHAIR. TRANSFERED INDEPENDENTLY TO HOSPITAL BED. MONISHA IS A&OX4, VERY ANXIOUS. VSS ON RA. PT HAS DENIED ANY SI THIS SHIFT. C/O 8/10 PAIN IN HER LOWER BACK, HIPS, AND BLE, THIS IS CHRONIC PAIN. MANAGED WITH 10/325MG NORCO. PT AWAKE MOST OF THE NOC, STATES SHE TAKES 100MG OF SEROQUEL, THIS WAS DC'D HERE. ADMINISTERED 1MG PO ATIVAN, WITH NO EFFECT. CALLED DR TWICE TO GET OTHER MEDS ORDERED TO HELP HER SLEEP. FIRST TIME NO NEW MEDS WERE ODERED BY JANETH. I CALLED AGAIN, HE ORDERED 5 MG OF ZYPREXA. SBA WITH FWW TO BR. PT USES A CANEOR FWW AT BASELINE. PT HAS URGENCY WITH SOME INCONTINENCE, WENDI PAD IN PLACE AND CHANGED NEEDED. NO BM THIS SHIFT. SUICIDE PRECAUTIONS MAINTAINED. 1:1 SITTER AT BEDSIDE. BED IN LOWEST POSITION, CALL LIGHT WITHIN REACH.
[2024-03-23] MEDS ORDERED: Potassium Chloride 20 MEQ TabCR PO ONE (07:00)
[2024-03-23] MEDS ORDERED: Magnesium Sulf 2 GM/Water 50ML 50 ML IV ONE (08:00)
[2024-03-23 08:06] VITALS: BP 119/68
[2024-03-23] MEDS ORDERED: Aspirin 81 MG Chew PO SCH (09:00)
[2024-03-23] MEDS ORDERED: Clopidogrel Bisulfate 75 MG Tab PO SCH (09:00)
[2024-03-23] MEDS ORDERED: Losartan Potassium 50 MG Tab PO SCH (09:00)
[2024-03-23] MEDS ORDERED: dilTIAZem HCL 120 MG CAP.CD PO SCH (09:00)
[2024-03-23] MEDS ORDERED: Enoxaparin 40 MG/0.4 ML SYR SC SCH (09:00)
[2024-03-23] MEDS ORDERED: NS 250 ML IV PRN (09:00)
--- NOTE | 2024-03-23 10:34 | NUR ---
PATIENT STATED SHE NO LONGER WANTS TO HARM HERSELF. AND STATED, "SOMEONE WAS CALLING ME AND THIS WAS WHY I WANTED TO HARM MYSELF BEFORE COMING TO THE HOSPITAL." SHE STATED, "A PREVIOUS MIXING MACHINE OPERATOR CONTINUES TO CALL AND BOTHER HER.": ADVISED PATIENT TO CALL SUICIDE HOTLINE WHEN SHE FEELS UPSET AND CALL POLICE IF SOMEONE IS CONTINUALLY BOTHERING HER.
[2024-03-23 15:22] VITALS: BP 133/63
[2024-03-23] MEDS ORDERED: [UNRECOGNIZED DRUG - CODE] PO (19:16)
[2024-03-23 20:07] VITALS: BP 134/75
[2024-03-23] MEDS ORDERED: Magnesium Oxide 400 MG Tab PO SCH (21:00)
[2024-03-23] MEDS ORDERED: QUEtiapine Fumarate 100 MG Tab PO SCH (21:00)
[2024-03-24 06:12] VITALS: BP 134/58
--- NOTE | 2024-03-24 06:36 | NUR ---
SHIFT SUMMARY MONISHA IS A&OX4, ANXIOUS, PLEASANT AND COOPERATIVE WITH CARES. VSS ON RA. PT HAS DENIED ANY SI THIS SHIFT. C/O 8/10 PAIN IN HER LOWER BACK, HIPS, AND BLE, THIS IS CHRONIC PAIN. MANAGED WITH K-PAD AND 10/325MG PO NORCO. PT ABLE TO GET SOME SLEEP THIS SHIFT, VERY THANKFUL DR REORDERED HER SEROQUEL. SBA WITH FWW TO BR. PT USES A CANE OR FWW AT BASELINE. PT HAS URGENCY WITH SOME INCONTINENCE, WENDI PAD IN PLACE AND CHANGED NEEDED. NO BM THIS SHIFT. SUICIDE PRECAUTIONS MAINTAINED. 1:1 SITTER AT BEDSIDE. BED IN LOWEST POSITION, CALL LIGHT WITHIN REACH.
[2024-03-24 07:15] VITALS: BP 143/72
[2024-03-24 08:37] LABS: Potassium, Blood 3.5 mmol/L (3.5-5.5)
[2024-03-24] MEDS ORDERED: Citalopram Hydrobromide 20 MG Tab PO SCH (09:00)
[2024-03-24] MEDS ORDERED: Potassium Chloride 20 MEQ TabCR PO ONE (11:00)
[2024-03-24 16:10] VITALS: BP 139/85
[2024-03-24 17:28] LABS: SARS-Cov-2 (COVID-19) PCR, MMC NEGATIVE (NEGATIVE)
[2024-03-24 18:08] VITALS: BP 139/85
--- NOTE | 2024-03-24 18:52 | NUR ---
PATIENT IS ALERT AND ORIENTED TIMES THREE. DEPRESSION, UTI, NO TELEMETRY, RA, VSS, MOOD IMPROVING. DENIES, SI. TRANSFER TOMORROW TO [facility].
[2024-03-24 19:22] VITALS: BP 161/81
[2024-03-25 04:31] VITALS: BP 148/54
--- NOTE | 2024-03-25 06:44 | NUR ---
SHIFT SUMMARY MONISHA IS A&OX4, PLEASANT AND COOPERATIVE WITH CARES. SHE IS ANXIOUS AND NERVOUS ABOUT GOING TO INPATIENT PSYCH AT [facility] TODAY. VSS ON RA. PT HAS DENIED ANY SI THIS SHIFT. C/O 8/10 PAIN IN HER LOWER BACK, HIPS, AND BLE, THIS IS CHRONIC PAIN. MANAGED WITH K-PAD AND 10/325MG NORCO. PT TOLERATING A CONSISTENT CARB DIET, HS SNACKS GIVEN. PT WAS ABLE TO SLEEP THIS SHIFT, WITH 100 MG PO SEROQUEL. SBA WITH FWW TO BR. PT USES A CANE OR FWW AT BASELINE. PT HAS URGENCY WITH SOME INCONTINENCE, WENDI PAD IN PLACE AND CHANGED NEEDED. NO BM THIS SHIFT. SUICIDE PRECAUTIONS MAINTAINED. 1:1 SITTER AT BEDSIDE. BED IN LOWEST POSITION, CALL LIGHT WITHIN REACH.
[2024-03-25 07:02] VITALS: BP 137/66
--- NOTE | 2024-03-25 11:35 | NUR ---
PT DC'D WITH [facility] [employer] TO TRANSPORT TO [facility] ,PT LEFT AT 0807, WHEELCHAIR OUT TO POL[facility] [place]. BELONGINGS GIVEN TO SECURITY TO TRANSPORT WITH PT. CALLED REPORT TO FOSTER AT 1130. SENT PACKET WITH [facility]/TRANSPORT
== END 2024-03-25 08:06 | DRG 880 ==
LOC: ER 12:38 → EOR 12:39 → MEDS 12:39 → ENPENDDIS 03-24 16:41 → MEDS 03-25 08:06
PROVIDERS: Family Medicine; Student in an Organized Health Care Education/Training Program; ADMIT Internal Medicine
DX: F41.9 Anxiety disorder, unspecified (principal); R45.851 Suicidal ideations; N39.0 Urinary tract infection, site not specified; T23.101A Burn of first degree of right hand, unspecified site, initial encounter; F32.A Depression, unspecified; F43.10 Post-traumatic stress disorder, unspecified; R79.1 Abnormal coagulation profile; E03.9 Hypothyroidism, unspecified; E11.9 Type 2 diabetes mellitus without complications; I10 Essential (primary) hypertension; I25.2 Old myocardial infarction; E83.42 Hypomagnesemia; X08.8XXA Exposure to other specified smoke, fire and flames, initial encounter; Z88.8 Allergy status to other drugs, medicaments and biological substances; E66.9 Obesity, unspecified; Z91.040 Latex allergy status; Z79.899 Other long term (current) drug therapy; Z79.890 Hormone replacement therapy; Z79.82 Long term (current) use of aspirin; Z79.02 Long term (current) use of antithrombotics/antiplatelets; Z79.84 Long term (current) use of oral hypoglycemic drugs; Z79.891 Long term (current) use of opiate analgesic; M79.7 Fibromyalgia; M54.9 Dorsalgia, unspecified; G89.29 Other chronic pain; Z90.710 Acquired absence of both cervix and uterus; Z68.39 Body mass index [BMI] 39.0-39.9, adult
CPT/HCPCS: 36415; 80048; 80053; 80061; 81001; 82947; 83036; 83735; 84132; 84436; 84443; 85025; 86592; 87077; 87086; 87186; 93005; 93010; 96365; 96375; 97116; 97162; 97530; 99285-25; A9270; G0378; J0696; J1650; J3475; J7050; U0002

== ENCOUNTER 2024-04-19 18:15 | Emergency (ER) | payer OTHER ==
[~2024-04-19] VITALS: Ht 160 cm; Wt 99.8 kg
[~2024-04-19 18:15] MED LIST changes: +[UNRECOGNIZED DRUG - CODE] PO
[2024-04-19 18:23] VITALS: BP 141/83
[2024-04-19] MEDS ORDERED: LORazepam 2 MG/ML 1ML Injection IV ONE (18:40)
[2024-04-19 19:42] LABS: BASOPHILS ABSOLUTE AUTO 0.03 K/mm3 (0.00-0.23); BASOPHILS PERCENT AUTO 1 % (0-2); EOSINOPHILS ABSOLUTE AUTO 0.07 K/mm3 (0.00-0.68); EOSINOPHILS PERCENT AUTO 2 % (0-6); Hematocrit 43.2 % (33.0-51.0); Hemoglobin 14.7 g/dL (11.5-16.0); IMMATURE GRAN PERCENT AUTO 0 % (0-1); LYMPHOCYTES ABSOLUTE AUTO 1.55 K/mm3 (0.84-5.20); LYMPHOCYTES PERCENT AUTO 43 % (21-46); MONOCYTES ABSOLUTE AUTO 0.22 K/mm3 (0.16-1.47); MONOCYTES PERCENT AUTO 6 % (4-13); Mean Corpuscular HGB 31.7 pg (26.0-34.0); Mean Corpuscular Volume 93 fL (80-100); Mean Platelet Volume 10.1 fL (9.1-12.4); NEUTROPHILS ABSOLUTE AUTO 1.76 K/mm3 (1.96-9.15); NEUTROPHILS PERCENT AUTO 49 % (41-73); Platelet Count 184 K/mm3 (150-400); RDW Coefficient Variation 12.9 % (11.7-14.2); RDW Standard Deviation 43.9 fL (35.1-46.3); Red Blood Cell Count 4.63 M/mm3 (3.80-5.20); White Blood Cell Count 3.63 K/mm3 (4.00-11.30)
[2024-04-19 20:19] LABS: Source, Urine Clean Catch
[2024-04-19 20:24] LABS: Bilirubin, Urine Neg (Neg); Blood, Urine 1+ (Neg); Glucose Qualitative, Urine Neg (Neg); Ketones, Urine 1+ (Neg); Leukocyte Esterase, Urine 3+ (Neg); Nitrite, Urine Pos (Neg); Protein, Urine Neg (Neg); Urobilinogen, Urine NORM (Normal); pH, Urine 6.5 (5.0-8.0)
[2024-04-19 20:29] LABS: Appearance, Urine Hazy (Clear); Color, Urine Yellow (P-Yellow)
[2024-04-19 20:34] LABS: White Blood Cells, Urine 25-50 /hpf (0-5)
[2024-04-19 20:35] LABS: Bacteria Many /hpf; Squamous Epithelial Cells Few /hpf (Few); Transitional Epithelial Cells Rare /hpf (0-Rare)
[2024-04-19] MEDS ORDERED: CefTRIAXone Sodium 1,000 MG in NS 100 ML IV ONE (20:40)
[2024-04-19 21:10] LABS: Magnesium, Blood 1.4 mg/dL (1.6-2.4)
[2024-04-19 21:14] LABS: Albumin, Blood 3.5 g/dL (3.4-5.0); Albumin/Globulin Ratio 1.1 (0.8-1.8); Bilirubin, Total 0.9 mg/dL (0.1-1.0); Bun/Creatinine Ratio 9.4 (12.0-20.0); Calcium, Blood 8.3 mg/dL (8.5-10.1); Creatinine, Blood 0.85 mg/dL (0.40-1.00); Globulin, Blood 3.2 g/dL (2.2-4.0); Potassium, Blood 3.6 mmol/L (3.5-5.5); Thyroid Stimulating Hormone 4.29 uIU/mL (0.360-4.800); Total Protein, Blood 6.7 g/dL (6.4-8.2)
[2024-04-19] MEDS ORDERED: HYDROcodone 10-APAP 325 TAB PO ONE (22:00)
[2024-04-20] MEDS ORDERED: CefTRIAXone Sodium 1,000 MG in NS 50 ML IV ONE (11:05)
[2024-04-20] MEDS ORDERED: HYDROcodone 10-APAP 325 TAB PO ONE ×2 (11:25→19:55)
[2024-04-20] MEDS ORDERED: HyDROXyzine HCl 25 MG Tab PO ONE (16:40)
[2024-04-20] MEDS ORDERED: Mag Sulfate 1 GM/D5% 100ML 100 ML IV ONE (16:40)
[2024-04-20] MEDS ORDERED: Ketorolac Tromethamine 30mg Vial IV ONE (18:00)
[2024-04-20] MEDS ORDERED: HYDROcodone 5-APAP 325 TAB PO ONE (20:15)
[2024-04-20] MEDS ORDERED: CEFD300 PO (21:40)
[2024-04-21] MEDS ORDERED: Cefdinir 300 MG Cap PO SCH (09:00)
== END 2024-04-20 21:50 | disposition home or self-care (01) ==
LOC: ER 18:15
PROVIDERS: Emergency Medicine
DX: S93.602A Unspecified sprain of left foot, initial encounter (principal); F41.9 Anxiety disorder, unspecified; N39.0 Urinary tract infection, site not specified; E11.9 Type 2 diabetes mellitus without complications; I10 Essential (primary) hypertension; E03.9 Hypothyroidism, unspecified; I25.2 Old myocardial infarction; K21.9 Gastro-esophageal reflux disease without esophagitis; G47.00 Insomnia, unspecified; W18.30XA Fall on same level, unspecified, initial encounter; Z79.82 Long term (current) use of aspirin; Z79.02 Long term (current) use of antithrombotics/antiplatelets; Z79.84 Long term (current) use of oral hypoglycemic drugs; Z79.899 Other long term (current) drug therapy; Z91.040 Latex allergy status; Z88.8 Allergy status to other drugs, medicaments and biological substances
CPT/HCPCS: 73620; 80053; 81001; 83735; 84443; 84484; 85025; 93005; 93010; 96365; 96366; 96367; 96375; 99285-25; A9270; J0696; J1885; J2060; J3475

== ENCOUNTER 2024-05-20 03:26 | Emergency (ER) | payer OTHER ==
[~2024-05-20 03:26] MED LIST changes: +CEFD300 PO
[2024-05-20 06:09] VITALS: BP 116/70
[2024-05-21] MEDS ORDERED: SYNTHROID100 M14 PO (03:58)
[2024-05-21] MEDS ORDERED: LOSA50 PO (03:59)
[2024-05-21] MEDS ORDERED: QUET25 PO (03:59)
== END 2024-05-20 06:51 | disposition home or self-care (01) ==
LOC: ER 03:26
DX: F32.A Depression, unspecified (principal); E11.9 Type 2 diabetes mellitus without complications; I10 Essential (primary) hypertension; E03.9 Hypothyroidism, unspecified; Z91.199 Patient's noncompliance with other medical treatment and regimen due to unspecified reason; Z79.02 Long term (current) use of antithrombotics/antiplatelets; Z79.82 Long term (current) use of aspirin; Z79.899 Other long term (current) drug therapy; Z79.84 Long term (current) use of oral hypoglycemic drugs; Z91.040 Latex allergy status; Z88.8 Allergy status to other drugs, medicaments and biological substances
CPT/HCPCS: 99284

== ENCOUNTER 2024-05-21 01:15 | Observation (INO) | payer OTHER ==
[~2024-05-21] VITALS: Ht 160 cm; Wt 99.8 kg
[2024-05-21 02:06] LABS: Source, Urine Clean Catch
[2024-05-21 02:11] LABS: Blood, Urine 2+ (Neg); Glucose Qualitative, Urine 1+ (Neg); Ketones, Urine 3+ (Neg); Leukocyte Esterase, Urine 3+ (Neg); Nitrite, Urine Pos (Neg); Protein, Urine 3+ (Neg); Specific Gravity, Urine 1.025 (1.003-1.022); Urobilinogen, Urine 1+ (Normal)
[2024-05-21 02:14] LABS: BASOPHILS ABSOLUTE AUTO 0.02 K/mm3 (0.00-0.23); BASOPHILS PERCENT AUTO 0 % (0-2); EOSINOPHILS ABSOLUTE AUTO 0.04 K/mm3 (0.00-0.68); EOSINOPHILS PERCENT AUTO 1 % (0-6); Hematocrit 46.2 % (33.0-51.0); Hemoglobin 16.7 g/dL (11.5-16.0); IMMATURE GRAN ABSOLUTE AUTO 0.01 K/mm3 (0.00-0.10); IMMATURE GRAN PERCENT AUTO 0 % (0-1); LYMPHOCYTES ABSOLUTE AUTO 2.47 K/mm3 (0.84-5.20); LYMPHOCYTES PERCENT AUTO 37 % (21-46); MONOCYTES ABSOLUTE AUTO 0.42 K/mm3 (0.16-1.47); MONOCYTES PERCENT AUTO 6 % (4-13); Mean Corpuscular HGB 32.5 pg (26.0-34.0); Mean Corpuscular HGB Conc 36.1 g/dL (31.5-36.5); Mean Corpuscular Volume 90 fL (80-100); NEUTROPHILS ABSOLUTE AUTO 3.77 K/mm3 (1.96-9.15); NEUTROPHILS PERCENT AUTO 56 % (41-73); Platelet Count 197 K/mm3 (150-400); RDW Coefficient Variation 12.7 % (11.7-14.2); RDW Standard Deviation 41.6 fL (35.1-46.3); Red Blood Cell Count 5.14 M/mm3 (3.80-5.20); White Blood Cell Count 6.73 K/mm3 (4.00-11.30)
[2024-05-21 02:23] LABS: Appearance, Urine Hazy (Clear); Bilirubin, Urine 1+ (Neg); Color, Urine Amber (P-Yellow)
[2024-05-21 02:25] LABS: Bacteria Mod /hpf; Red Blood Cells, Urine 0-2 /hpf (0-2); Squamous Epithelial Cells Mod /hpf (Few); White Blood Cells, Urine TNTC /hpf (0-5)
[2024-05-21 02:27] LABS: Acetaminophen, Random <2.0 ug/mL (10.0-30.0); Alanine Aminotransfer (ALT/SGP 26 U/L (12-78); Albumin, Blood 4.4 g/dL (3.4-5.0); Albumin/Globulin Ratio 1.2 (0.8-1.8); Alk Phos 74 U/L (50-136); Anion Gap 16 mmol/L (3-11); Aspartate Aminotrans (AST/SGOT 31 U/L (12-37); Bilirubin, Total 1.4 mg/dL (0.1-1.0); Blood Urea Nitrogen 12 mg/dL (8-24); Bun/Creatinine Ratio 12.8 (12.0-20.0); CO2, Blood 21 mmol/L (21-32); Calcium, Blood 9.4 mg/dL (8.5-10.1); Chloride, Blood 106 mmol/L (98-108); Creatinine, Blood 0.94 mg/dL (0.40-1.00); Ethanol (Alcohol), Blood, Med <3 mg/dL; Globulin, Blood 3.8 g/dL (2.2-4.0); Glomerular Filtration Rate 69 (60-); Glucose, Blood 185 mg/dL (70-99); Potassium, Blood 3.6 mmol/L (3.5-5.5); Salicylate <1.7 mg/dL (2.8-20.0); Sodium, Blood 139 mmol/L (136-145); Total Protein, Blood 8.2 g/dL (6.4-8.2)
[2024-05-21 02:30] LABS: U Amphetamine Screen Not Detected; U Barbituate Screen Not Detected; U Benzodiazapine Screen Not Detected; U Buprenorphine Screen Not Detected; U Cannabinoids Screen Not Detected; U Cocaine Screen Not Detected; U Methadone Screen Not Detected; U Methamphetamine Screen Not Detected; U Opiates Screen DETECTED; U Oxycodone Screen DETECTED; U Phencyclidine Screen Not Detected
[2024-05-21] MEDS ORDERED: SYNTHROID100 M14 PO (03:58)
[2024-05-21] MEDS ORDERED: QUET25 PO (03:59)
[2024-05-21] MEDS ORDERED: LOSA50 PO (03:59)
[2024-05-21] MEDS ORDERED: QUEtiapine Fumarate 100 MG Tab PO ONE (04:05)
[2024-05-21] MEDS ORDERED: Cefdinir 300 MG Cap PO ONE (04:05)
[2024-05-21] MEDS ORDERED: HYDROcodone 10-APAP 325 TAB PO ONE (09:35)
[2024-05-21] MEDS ORDERED: HYDROcodone 10-APAP 325 TAB PO PRN (16:35)
[2024-05-21] MEDS ORDERED: QUEtiapine Fumarate 100 MG Tab PO SCH (21:00)
[2024-05-21] MEDS ORDERED: QUEtiapine Fumarate 25 MG Tab PO SCH (21:00)
[2024-05-21] MEDS ORDERED: Cefdinir 300 MG Cap PO SCH (21:00)
[2024-05-22 00:46] VITALS: BP 123/67
[2024-05-22] MEDS ORDERED: DiphenhydrAMINE HCL 25 MG Cap PO ONE (03:55)
--- NOTE | 2024-05-22 17:29 | NUR ---
SHIFT SUMMARY PT AA&OX4. PLEASANT AND COOPERATIVE WITH CARE. SPEECH ABUNDANT AND EYE CONTACT APPROPRIATE. DENIES AVH, SI. MOOD HAS FLUCTUATED FROM EUTHYMIC AND LAUGHING TO REPORTING HE FEELS "DEPRESSED" PT COMPLIANT WITH MEDICATIONS. HE HAS NOT REQUESTED ANY PRN. HE HAS BEEN UP FOR MEALS, SHOWERS, AND GROUPS. HE DENIES ANY CURRENT NEEDS OR CONCERNS, WILL CONTINUE WITH POC
== END 2024-05-22 10:05 | disposition home or self-care (01) ==
LOC: ER 01:15 → EOR 01:16
PROVIDERS: ADMIT Emergency Medicine
DX: F33.2 Major depressive disorder, recurrent severe without psychotic features (principal); S51.812A Laceration without foreign body of left forearm, initial encounter; R45.851 Suicidal ideations; E11.9 Type 2 diabetes mellitus without complications; I10 Essential (primary) hypertension; E03.9 Hypothyroidism, unspecified; G89.29 Other chronic pain; K21.9 Gastro-esophageal reflux disease without esophagitis; Z91.040 Latex allergy status; Z88.8 Allergy status to other drugs, medicaments and biological substances; Z79.899 Other long term (current) drug therapy; Z79.84 Long term (current) use of oral hypoglycemic drugs; X58.XXXA Exposure to other specified factors, initial encounter
CPT/HCPCS: 80053; 80320; 81001; 85025; 87086; 93005; 93010; 99285-25; A9270; G0378; G0480

== ENCOUNTER 2024-09-30 16:59 | Observation (INO) | payer OTHER ==
[~2024-09-30] VITALS: Ht 162.6 cm; Wt 88.9 kg
[~2024-09-30 16:59] MED LIST changes: +LOSA50 PO; +QUET25 PO; +SYNTHROID100 M14 PO
[2024-09-30 17:27] LABS: Source, Urine Clean Catch
[2024-09-30 17:30] LABS: Appearance, Urine Hazy (Clear); Bilirubin, Urine Neg (Neg); Blood, Urine 1+ (Neg); Color, Urine Amber (P-Yellow); Glucose Qualitative, Urine 3+ (Neg); Ketones, Urine 2+ (Neg); Leukocyte Esterase, Urine 3+ (Neg); Nitrite, Urine Pos (Neg); Protein, Urine 2+ (Neg); Specific Gravity, Urine 1.025 (1.003-1.022); Urobilinogen, Urine 1+ (Normal)
[2024-09-30 17:37] LABS: BASOPHILS ABSOLUTE AUTO 0.03 K/mm3 (0.00-0.23); BASOPHILS PERCENT AUTO 1 % (0-2); EOSINOPHILS ABSOLUTE AUTO 0.05 K/mm3 (0.00-0.68); EOSINOPHILS PERCENT AUTO 1 % (0-6); Hematocrit 49.1 % (33.0-51.0); Hemoglobin 17.6 g/dL (11.5-16.0); IMMATURE GRAN PERCENT AUTO 0 % (0-1); LYMPHOCYTES ABSOLUTE AUTO 2.02 K/mm3 (0.84-5.20); LYMPHOCYTES PERCENT AUTO 39 % (21-46); MONOCYTES ABSOLUTE AUTO 0.36 K/mm3 (0.16-1.47); MONOCYTES PERCENT AUTO 7 % (4-13); Mean Corpuscular HGB 32.7 pg (26.0-34.0); Mean Corpuscular HGB Conc 35.8 g/dL (31.5-36.5); Mean Corpuscular Volume 91 fL (80-100); Mean Platelet Volume 9.5 fL (9.1-12.4); NEUTROPHILS ABSOLUTE AUTO 2.78 K/mm3 (1.96-9.15); NEUTROPHILS PERCENT AUTO 53 % (41-73); Platelet Count 166 K/mm3 (150-400); RDW Coefficient Variation 13.2 % (11.7-14.2); RDW Standard Deviation 43.9 fL (35.1-46.3); Red Blood Cell Count 5.38 M/mm3 (3.80-5.20); White Blood Cell Count 5.24 K/mm3 (4.00-11.30)
[2024-09-30 17:40] LABS: White Blood Cells, Urine 25-50 /hpf (0-5)
[2024-09-30 17:41] LABS: Bacteria Many /hpf; Squamous Epithelial Cells Mod /hpf (Few)
[2024-09-30 17:43] LABS: U Amphetamine Screen Not Detected; U Barbituate Screen Not Detected; U Benzodiazapine Screen Not Detected; U Buprenorphine Screen Not Detected; U Cannabinoids Screen Not Detected; U Cocaine Screen Not Detected; U Methadone Screen Not Detected; U Methamphetamine Screen Not Detected; U Opiates Screen DETECTED; U Oxycodone Screen Not Detected; U Phencyclidine Screen Not Detected
[2024-09-30 18:00] LABS: Acetaminophen, Random <2.0 ug/mL (10.0-30.0); Alanine Aminotransfer (ALT/SGP 19 U/L (12-78); Albumin, Blood 4.3 g/dL (3.4-5.0); Albumin/Globulin Ratio 1.2 (0.8-1.8); Alk Phos 81 U/L (50-136); Anion Gap 14 mmol/L (3-11); Aspartate Aminotrans (AST/SGOT 25 U/L (12-37); Bilirubin, Total 1.3 mg/dL (0.1-1.0); Blood Urea Nitrogen 14 mg/dL (8-24); Bun/Creatinine Ratio 15.1 (12.0-20.0); CO2, Blood 20 mmol/L (21-32); Calcium, Blood 9.6 mg/dL (8.5-10.1); Chloride, Blood 106 mmol/L (98-108); Creatinine, Blood 0.93 mg/dL (0.40-1.00); Ethanol (Alcohol), Blood, Med <3 mg/dL; Globulin, Blood 3.7 g/dL (2.2-4.0); Glomerular Filtration Rate 69 (60-); Glucose, Blood 256 mg/dL (70-99); Potassium, Blood 3.6 mmol/L (3.5-5.5); Salicylate <1.7 mg/dL (2.8-20.0); Sodium, Blood 136 mmol/L (136-145)
[2024-09-30] MEDS ORDERED: HyDROXyzine HCl 25 MG Tab PO ONE (19:10)
[2024-09-30] MEDS ORDERED: OLANZapine 10 MG Tab PO ONE (19:10)
[2024-09-30 19:42] LABS: Source, Urine Fem Cath
[2024-09-30 19:49] LABS: Appearance, Urine Clear (Clear); Bilirubin, Urine Neg (Neg); Blood, Urine 2+ (Neg); Color, Urine Amber (P-Yellow); Glucose Qualitative, Urine 3+ (Neg); Ketones, Urine 3+ (Neg); Leukocyte Esterase, Urine 2+ (Neg); Nitrite, Urine Pos (Neg); Protein, Urine 2+ (Neg); Urobilinogen, Urine 1+ (Normal)
[2024-09-30 19:59] LABS: Bacteria Many /hpf; Renal Epithelial Rare /hpf (0-Rare); Squamous Epithelial Cells Not Seen /hpf (Few)
[2024-09-30] MEDS ORDERED: HYDROcodone 10-APAP 325 TAB PO PRN (20:25)
[2024-09-30] MEDS ORDERED: MetFORMIN HCl 500 mg PO SCH (20:30)
[2024-09-30] MEDS ORDERED: QUEtiapine Fumarate 100 MG Tab PO SCH (21:00)
[2024-09-30] MEDS ORDERED: Atorvastatin 10 MG Tab PO SCH (21:00)
[2024-09-30] MEDS ORDERED: QUEtiapine Fumarate 25 MG Tab PO SCH (21:00)
[2024-09-30] MEDS ORDERED: Cefdinir 300 MG Cap PO SCH (21:00)
[2024-10-01] MEDS ORDERED: Losartan Potassium 25 MG Tab PO SCH (09:00)
[2024-10-01] MEDS ORDERED: Aspirin 81 MG Chew PO SCH (09:00)
[2024-10-01] MEDS ORDERED: Aspirin 325 MG Tab PO SCH (09:00)
[2024-10-01] MEDS ORDERED: Citalopram Hydrobromide 20 MG Tab PO SCH (09:00)
[2024-10-01] MEDS ORDERED: dilTIAZem HCL 30 MG TAB PO SCH (09:00)
[2024-10-01] MEDS ORDERED: Levothyroxine Sodium 0.1 MG Tab PO SCH (09:00)
[2024-10-01] MEDS ORDERED: Clopidogrel Bisulfate 75 MG Tab PO SCH (09:00)
[2024-10-01] MEDS ORDERED: dilTIAZem HCL 120 MG CAP.CD PO SCH (13:30)
[2024-10-01] MEDS ORDERED: FLU VACC TS2024-25(6MOS UP)/PF 45 MCG/0.5 ML SYRINGE IM SCH (14:20)
[2024-10-01] MEDS ORDERED: Insulin Human Lispro 100 Units/ML 3ML Syringe SC SCH (16:30)
[2024-10-01] MEDS ORDERED: HyDROXyzine HCl 25 MG Tab PO ONE (17:45)
[2024-10-01] MEDS ORDERED: TIMO.25OPS BOTHEYES (19:56)
--- NOTE | 2024-10-01 20:22 | NUR ---
NEW ADMIT. PATIENT ADMITTED TO ROOM 346 FROM THE ER. PATEINT ARRIVED TO ROOM WITH 2 PERSONAL BELONGINGS BAG-LOCKED IN CUPBOARD IN ROOM. PATIENT ABLE TO TRANSFER FROM [facility] TO HOSPITAL BED INDEPENDENTLY WITH STEADY GAIT. THIS RN TO ASSUME PATIENT CARE.
[2024-10-01] MEDS ORDERED: Amoxicillin/Clavulanate K 875 MG Tab PO SCH (21:00)
[2024-10-01 21:15] VITALS: BP 149/93
--- NOTE | 2024-10-02 03:27 | NUR ---
HOSPITALIST CONTACTED. DR. KIRBY NOTIFIED OF PATIENT REPORTING DIARRHEA THAT STARTED AFTER ADMITTANCE, DR. KIRBY ORDERED FOR IMODIUM 2MG Q4P FOR DIARRHEA.
[2024-10-02] MEDS ORDERED: Loperamide HCl 2 MG Cap PO PRN (03:30)
[2024-10-02 05:10] VITALS: BP 143/82
[2024-10-02 05:49] LABS: Hematocrit 46.2 % (33.0-51.0); Hemoglobin 16.3 g/dL (11.5-16.0); Mean Corpuscular HGB 32.7 pg (26.0-34.0); Mean Corpuscular HGB Conc 35.3 g/dL (31.5-36.5); Mean Corpuscular Volume 93 fL (80-100); Mean Platelet Volume 9.9 fL (9.1-12.4); Platelet Count 162 K/mm3 (150-400); RDW Coefficient Variation 13.4 % (11.7-14.2); RDW Standard Deviation 44.9 fL (35.1-46.3); Red Blood Cell Count 4.99 M/mm3 (3.80-5.20); White Blood Cell Count 5.88 K/mm3 (4.00-11.30)
[2024-10-02 06:31] LABS: Magnesium, Blood 1.3 mg/dL (1.6-2.4); Thyroxine (T4) 6.8 ug/dL (4.8-13.9)
[2024-10-02 06:36] LABS: Albumin, Blood 3.8 g/dL (3.4-5.0); Anion Gap 11 mmol/L (3-11); Blood Urea Nitrogen 23 mg/dL (8-24); Bun/Creatinine Ratio 18.3 (12.0-20.0); CO2, Blood 24 mmol/L (21-32); Calcium, Blood 9.4 mg/dL (8.5-10.1); Chloride, Blood 104 mmol/L (98-108); Creatinine, Blood 1.26 mg/dL (0.40-1.00); Glomerular Filtration Rate 48 (60-); Glucose, Blood 197 mg/dL (70-99); Phosphorus, Blood 4.1 mg/dL (2.5-4.9); Potassium, Blood 3.2 mmol/L (3.5-5.5); Sodium, Blood 136 mmol/L (136-145)
--- NOTE | 2024-10-02 06:39 | NUR ---
SHIFT SUMMARY. PATIENT IS A&OX4, CALLS APPROPRIATELY AND IS ABLE TO MAKE HER NEEDS KNOWN. PATIENT HAS 1:1 SITTER D/T SI. PATIENT ADMITTED WITH HALLUCINATIONS. PATIENT REPORTS DIARRHEA THAT STARTED AFTER HER ARRIVAL TO THE HOSPITAL-PATIENT BELIEVES IT COULD BE D/T THE ABX-IMODIUM GIVEN PER ORDERS. PATIENT HAS RESTED WELL WITH RESPIRATIONS EQUAL AND UNLABORED. PATIENT IS CONTINENT AND USING THE BATHROOM WITH SUPERVISION. PATIENT DOES NOT HAVE IV ACCESS-ORDER IN PLACE. PATIENT TAKES MEDS WHOLE WITH WATER. PATIENT C/O BACK PAIN-MEDICATED PER ORDERS X2 THIS SHIFT. BED IS LOCKED IN THE LOWEST POSITION, PATIENT HAS SHORT CALL LIGHT FOR SI. SITTER IN VIEW.
[2024-10-02 07:30] VITALS: BP 148/96
[2024-10-02] MEDS ORDERED: Potassium Chloride 20 MEQ TabCR PO ONE (08:00)
[2024-10-02] MEDS ORDERED: Enoxaparin 40 MG/0.4 ML SYR SC SCH (09:00)
[2024-10-02] MEDS ORDERED: Magnesium Oxide 400 MG Tab PO SCH (09:00)
[2024-10-02] MEDS ORDERED: Losartan Potassium 50 MG Tab PO SCH (09:00)
[2024-10-02] MEDS ORDERED: Phenazopyridine HCl 100 MG Tab PO ONE (11:47)
[2024-10-02 16:38] VITALS: BP 127/79
--- NOTE | 2024-10-02 17:25 | NUR ---
SHIFT SUMMARY: PATIENT A/OX4, ANSWER TO QUESTIONS APPROPRIATELY AND ABLE TO MAKE NEEDS KNOWN. PATIENT REPORTS AUDITORY HALLUCINATION AND DENIES SI THIS SHIFT. PATIENT HAS 1:1 SITTER OUTSIDE HER ROOM FOR SAFETY. PATIENT REPORTS PAIN 8/10 TO L HIP/LOWER BACK AND FEET, MEDICATED X1 c PO NORCO c MOD EFFECT. PATIENT HAS FAIR APPETITE, CONTINENT OF BLADDER AND AMBULATES TO BATHROOM c SBA. PATIENT KIDNEY FUNCTIONS HAS TRENDING UP, PHARMACIST AND DR. ENGLE ARE AWARE OF THIS ISSUES. PATIENT RECEIVED OT DOSE OF PO PYRIDIUM. VITAL SIGNS REVIEWED. PATIENT HAS NO IV ACCESS PER ORDER.
[2024-10-02 19:53] VITALS: BP 143/82
[2024-10-02] MEDS ORDERED: Cefdinir 300 MG Cap PO SCH (21:00)
--- NOTE | 2024-10-03 04:03 | NUR ---
SHIFT SUMMARY ADMITTED FOR HALLUCINATIONS. FULL CODE. MODERATE SI PRECAUTIONS. SITTER IN PLACE. ON RA. A&O X4. ADA DIET. ACHS CBG'S - LOW SS. STANDBY ASSIST - BRP. PAIN MEDICATION GIVEN. SHE IS CONTINENT AND PLEASANT THIS SHIFT. SHE IS COOPERATING WITH CARE. SHE DENIES SI THIS SHIFT.
[2024-10-03 04:55] VITALS: BP 155/94
[2024-10-03 06:03] LABS: Albumin, Blood 3.5 g/dL (3.4-5.0); Anion Gap 11 mmol/L (3-11); Blood Urea Nitrogen 27 mg/dL (8-24); CO2, Blood 26 mmol/L (21-32); Calcium, Blood 9.1 mg/dL (8.5-10.1); Chloride, Blood 106 mmol/L (98-108); Creatinine, Blood 1.23 mg/dL (0.40-1.00); Glomerular Filtration Rate 49 (60-); Glucose, Blood 215 mg/dL (70-99); Magnesium, Blood 1.4 mg/dL (1.6-2.4); Phosphorus, Blood 3.9 mg/dL (2.5-4.9); Potassium, Blood 3.9 mmol/L (3.5-5.5); Sodium, Blood 139 mmol/L (136-145)
[2024-10-03 07:16] VITALS: BP 141/84
[2024-10-03] MEDS ORDERED: Magnesium Oxide 400 MG Tab PO SCH (08:00)
[2024-10-03 15:21] VITALS: BP 125/97
[2024-10-03 16:27] VITALS: BP 139/95
[2024-10-03] MEDS ORDERED: Propranolol HCL 20 MG TAB PO SCH (16:30)
--- NOTE | 2024-10-03 18:07 | NUR ---
SHIFT SUMMARY: PATIENT A/OX4, CALM, PLEASANT AND COOPERATIVE c CARE. PATIENT HAS GENERALIZED TREMORS, STATED "IT'S NOT NEW". DR ENGLE IS AWARE OF THIS ISSUE. PATIENT DENIES SI OR HARMING HERSELF/OTHERS, BUT REPORTS STILL HAVING AUDITORY HALLUCINATION. PATIENT ON LOW SI, 1:1 SITTER DC'D PER ORDER. PATIENT REPORTS 3 LOOSE STOOL THIS SHIFT, CONTINENT OF BOWEL/BLADDER, AMBULATES TO BATHROOM c SBA/FWW. PATIENT MEDICATED X2 FOR LOW BACK/HIPS AND FEET PAIN c MOD EFFECT. VITAL SIGNS REVIEWED. CALL LIGHT IN REACH.
[2024-10-03 19:55] VITALS: BP 144/81
[2024-10-04 03:55] VITALS: BP 136/82
--- NOTE | 2024-10-04 04:13 | NUR ---
SHIFT SUMMARY ADMITTED FOR HALLUCINATIONS. ALSO FOUND TO HAVE A UTI. FULL CODE. ANTIB RX PO ARE SCHEDULED. SHE WILL DC HOME. ADA DIET. ACHS - LOW SS. ON RA. A&O X4. CONTINENT. INDEPENDENT IN ROOM. SHE DENIES SI. HX OF DEPRESSION AND HALLUCINATIONS. NORCO AVAILABLE FOR CHRONIC BACK, HIP, AND LEG PAIN. SHE HAS A CAREGIVER AT HOME.
[2024-10-04 06:11] LABS: Bun/Creatinine Ratio 21.4 (12.0-20.0); Calcium, Blood 9.6 mg/dL (8.5-10.1); Creatinine, Blood 0.94 mg/dL (0.40-1.00); Magnesium, Blood 1.3 mg/dL (1.6-2.4); Potassium, Blood 3.8 mmol/L (3.5-5.5)
[2024-10-04 07:30] VITALS: BP 117/101
[2024-10-04] MEDS ORDERED: Magnesium Sulf 2 GM/Water 50ML 50 ML IV ONE (10:30)
[2024-10-04 14:34] VITALS: BP 121/54
[2024-10-04] MEDS ORDERED: Propranolol HCL 20 MG TAB PO SCH (16:30)
--- NOTE | 2024-10-04 17:33 | NUR ---
SHIFT SUMMARY: PATIENT A/OX4, CALM, PLEASANT AND COOPERATIVE c CARE. PATIENT ON LOW SI, DENIES SI THIS SHIFT. PATIENT MEDICATED X2 FOR CHRONIC BACK/HIPS AND FEET PAIN PER EMAR c GOOD EFFECT. PATIENT REPORTS AUDITORY HALLUCINATION AND TREMORS HAS IMPROVED TODAY. PATIENT VERBALIZED "I'M READY TO GO HOME TOMORROW." PATIENT HAS GOOD APPETITE, CONTINENT OF BLADDER, AMBULATES TO BATHROOM c SBA/FWW. PATIENT RECEIVED OT DOSE OF IV MAG SULFATE. VITAL SIGNS REVIEWED. PATIENT HAS NO COMPLAINTS OR DENIES NEW CONCERNED THIS SHIFT. CALL LIGHT IN REACH.
[2024-10-04 20:11] VITALS: BP 151/82
[2024-10-05 02:18] VITALS: BP 143/84
--- NOTE | 2024-10-05 04:02 | NUR ---
SHIFT SUMMARY PATIENT IS ALERT AND ORIENTED X4. PATIENT HAS BEEN PLEASENT AND COOPERATIVE WITH CARE. PATIENT IS ON LOW SI. DENIES SI THIS SHIFT. PATIENT MEDICATED FOR PAIN ONCE THIS SHIFT. PATIENT HAS HAD NO COMPLAINTS OF SOB, NAUSEA OR VOMITTING THIS SHIFT. PATIENT HAS REPORTED NO AUDITORY HALLUCINATIONS THIS SHIFT AND TREMORS HAVE IMPROVED. PATIENT HAS BEEN IND THIS SHIFT. VITAL SIGNS REVIEWED. PATIENT HAS NO NEW COMPLAINTS THIS SHIFT. BED IN LOCKED AND LOWEST POSITION. CALL LIGHT IN PLACE. WILL MONITOR UNTIL SHIFT CHANGE.
[2024-10-05 06:11] LABS: Hematocrit 43.3 % (33.0-51.0); Hemoglobin 15.5 g/dL (11.5-16.0); Mean Corpuscular HGB 33.2 pg (26.0-34.0); Mean Corpuscular HGB Conc 35.8 g/dL (31.5-36.5); Mean Corpuscular Volume 93 fL (80-100); Mean Platelet Volume 10.2 fL (9.1-12.4); Platelet Count 158 K/mm3 (150-400); RDW Coefficient Variation 13.1 % (11.7-14.2); RDW Standard Deviation 44.2 fL (35.1-46.3); Red Blood Cell Count 4.67 M/mm3 (3.80-5.20); White Blood Cell Count 5.31 K/mm3 (4.00-11.30)
[2024-10-05 06:52] LABS: Albumin, Blood 3.6 g/dL (3.4-5.0); Anion Gap 9 mmol/L (3-11); Blood Urea Nitrogen 19 mg/dL (8-24); Bun/Creatinine Ratio 20.3 (12.0-20.0); CO2, Blood 26 mmol/L (21-32); Calcium, Blood 9.9 mg/dL (8.5-10.1); Chloride, Blood 108 mmol/L (98-108); Creatinine, Blood 0.94 mg/dL (0.40-1.00); Glomerular Filtration Rate 68 (60-); Glucose, Blood 192 mg/dL (70-99); Magnesium, Blood 1.6 mg/dL (1.6-2.4); Phosphorus, Blood 3.5 mg/dL (2.5-4.9); Sodium, Blood 139 mmol/L (136-145)
[2024-10-05 07:39] VITALS: BP 135/72
[2024-10-05] MEDS ORDERED: QUEtiapine Fumarate 25 MG Tab PO PRN (13:20)
[2024-10-05] MEDS ORDERED: METF500 PO (13:57)
[2024-10-05] MEDS ORDERED: QUET25 PO (13:58)
[2024-10-05] MEDS ORDERED: CEFD300 PO (13:59)
[2024-10-05] MEDS ORDERED: VISBIOME 112.51 EACH PO (14:00)
[2024-10-05] MEDS ORDERED: Inderal 20 mg T20 MG PO (14:00)
--- NOTE | 2024-10-05 15:44 | NUR ---
SHIFT SUMMARY PT A&OX4 AND ANSWERS QUESTIONS APPROPRIATELY. PT RECEIVED PHYCH EVALUATION AND WAS CLEARED PRIOR TO D/C ORDERS. PT RECEIVED SCHEDULED AND PRN MEDICATIONS. PT VSS, NO COMPLAINTS OF CP/PRESSURE OR SOB. PT STABLE AND DISCHARGE ORDERS PLACED. DISCHARGE EDUCATIONS GIVEN. NO ACUTE EVENTS AT THIS TIME. PT DISCHARGED VIA W/C TO CAR. ALL BELONGINGS OUT OF ROOM AND W/ PATIENT.
== END 2024-10-05 14:18 | disposition home health service (06) ==
LOC: ER 16:59 → MEDS 17:00 → EOR 17:00 → MEDS 10-01 20:15
PROVIDERS: Internal Medicine; Physician Assistant; Student in an Organized Health Care Education/Training Program; ADMIT Emergency Medicine
DX: F33.3 Major depressive disorder, recurrent, severe with psychotic symptoms (principal); N39.0 Urinary tract infection, site not specified; N17.9 Acute kidney failure, unspecified; F43.12 Post-traumatic stress disorder, chronic; G30.9 Alzheimer's disease, unspecified; F02.A0 Dementia in other diseases classified elsewhere, mild, without behavioral disturbance, psychotic disturbance, mood disturbance, and anxiety; E11.9 Type 2 diabetes mellitus without complications; E03.9 Hypothyroidism, unspecified; I10 Essential (primary) hypertension; M79.7 Fibromyalgia; K21.9 Gastro-esophageal reflux disease without esophagitis; I25.2 Old myocardial infarction; Z79.02 Long term (current) use of antithrombotics/antiplatelets; Z79.890 Hormone replacement therapy; Z79.84 Long term (current) use of oral hypoglycemic drugs; Z79.82 Long term (current) use of aspirin; Z79.899 Other long term (current) drug therapy; Z91.040 Latex allergy status; Z88.8 Allergy status to other drugs, medicaments and biological substances; Z90.710 Acquired absence of both cervix and uterus
CPT/HCPCS: 36415; 80048; 80053; 80069; 80320; 81001; 81025; 82565; 82947; 83735; 84436; 84443; 85025; 85027; 87077; 87086; 87186; 93005; 93010; 96372; 97162; 97530; 99285-25; A9270; G0378; G0480; J1650; J3475; P9612

== ENCOUNTER 2024-10-24 21:50 | Inpatient (IN) | payer OTHER ==
[~2024-10-24] VITALS: Ht 160 cm; Wt 99.8 kg
[~2024-10-24 21:50] MED LIST changes: +Inderal 20 mg T20 MG PO; +TIMO.25OPS BOTHEYES; +VISBIOME 112.51 EACH PO
[2024-10-24] MEDS ORDERED: OLANZapine ODT 5 MG Tab PO ONE (22:30)
[2024-10-24 22:57] LABS: BASOPHILS ABSOLUTE AUTO 0.02 K/mm3 (0.00-0.23); BASOPHILS PERCENT AUTO 0 % (0-2); EOSINOPHILS PERCENT AUTO 2 % (0-6); Hematocrit 44.8 % (33.0-51.0); Hemoglobin 15.8 g/dL (11.5-16.0); IMMATURE GRAN ABSOLUTE AUTO 0.01 K/mm3 (0.00-0.10); IMMATURE GRAN PERCENT AUTO 0 % (0-1); LYMPHOCYTES ABSOLUTE AUTO 1.76 K/mm3 (0.84-5.20); LYMPHOCYTES PERCENT AUTO 39 % (21-46); MONOCYTES ABSOLUTE AUTO 0.29 K/mm3 (0.16-1.47); MONOCYTES PERCENT AUTO 6 % (4-13); Mean Corpuscular HGB 32.7 pg (26.0-34.0); Mean Corpuscular HGB Conc 35.3 g/dL (31.5-36.5); Mean Corpuscular Volume 93 fL (80-100); Mean Platelet Volume 9.5 fL (9.1-12.4); NEUTROPHILS ABSOLUTE AUTO 2.38 K/mm3 (1.96-9.15); NEUTROPHILS PERCENT AUTO 52 % (41-73); Platelet Count 168 K/mm3 (150-400); RDW Coefficient Variation 12.6 % (11.7-14.2); RDW Standard Deviation 42.8 fL (35.1-46.3); Red Blood Cell Count 4.83 M/mm3 (3.80-5.20); White Blood Cell Count 4.56 K/mm3 (4.00-11.30)
[2024-10-24 23:25] LABS: Acetaminophen, Random <2.0 ug/mL (10.0-30.0); Alanine Aminotransfer (ALT/SGP 20 U/L (12-78); Albumin, Blood 3.9 g/dL (3.4-5.0); Alk Phos 87 U/L (50-136); Anion Gap 11 mmol/L (3-11); Aspartate Aminotrans (AST/SGOT 21 U/L (12-37); Bilirubin, Total 0.9 mg/dL (0.1-1.0); Blood Urea Nitrogen 16 mg/dL (8-24); CO2, Blood 26 mmol/L (21-32); Calcium, Blood 9.8 mg/dL (8.5-10.1); Chloride, Blood 104 mmol/L (98-108); Creatinine, Blood 0.84 mg/dL (0.40-1.00); Ethanol (Alcohol), Blood, Med <3 mg/dL; Free Thyroxine 1.05 ng/dL (0.70-1.60); Globulin, Blood 3.8 g/dL (2.2-4.0); Glomerular Filtration Rate 78 (60-); Glucose, Blood 208 mg/dL (70-99); Potassium, Blood 4.1 mmol/L (3.5-5.5); Salicylate <1.7 mg/dL (2.8-20.0); Sodium, Blood 137 mmol/L (136-145); Total Protein, Blood 7.7 g/dL (6.4-8.2)
[2024-10-24 23:30] LABS: Source, Urine Clean Catch
[2024-10-24 23:31] LABS: Bilirubin, Urine Neg (Neg); Blood, Urine Neg (Neg); Glucose Qualitative, Urine 1+ (Neg); Ketones, Urine Neg (Neg); Leukocyte Esterase, Urine 1+ (Neg); Nitrite, Urine Neg (Neg); Protein, Urine Neg (Neg); Specific Gravity, Urine 1.015 (1.003-1.022); Urobilinogen, Urine NORM (Normal)
[2024-10-24 23:47] LABS: Appearance, Urine Hazy (Clear); Color, Urine Yellow (P-Yellow)
[2024-10-24 23:48] LABS: Bacteria Mod /hpf; Red Blood Cells, Urine 0-2 /hpf (0-2); Squamous Epithelial Cells Mod /hpf (Few); U Amphetamine Screen Not Detected; U Barbituate Screen Not Detected; U Benzodiazapine Screen Not Detected; U Buprenorphine Screen Not Detected; U Cannabinoids Screen Not Detected; U Cocaine Screen Not Detected; U Methadone Screen Not Detected; U Methamphetamine Screen Not Detected; U Opiates Screen DETECTED; U Oxycodone Screen Not Detected; U Phencyclidine Screen Not Detected
[2024-10-25] MEDS ORDERED: HYDROcodone 10-APAP 325 TAB PO PRN (01:20)
[2024-10-25] MEDS ORDERED: Levothyroxine Sodium 0.1 MG Tab PO SCH (06:35)
[2024-10-25] MEDS ORDERED: MetFORMIN HCl 500 mg PO SCH (08:00)
[2024-10-25] MEDS ORDERED: Losartan Potassium 25 MG Tab PO SCH (09:00)
[2024-10-25] MEDS ORDERED: Clopidogrel Bisulfate 75 MG Tab PO SCH (09:00)
[2024-10-25] MEDS ORDERED: Propranolol HCL 20 MG TAB PO SCH (09:00)
[2024-10-25] MEDS ORDERED: Citalopram Hydrobromide 20 MG Tab PO SCH (09:00)
[2024-10-25] MEDS ORDERED: Losartan Potassium 50 MG Tab PO SCH (09:00)
[2024-10-25] MEDS ORDERED: Aspirin 81 MG Chew PO SCH (09:00)
[2024-10-25] MEDS ORDERED: Cephalexin Monohydrate 500 MG Cap PO ONE (16:25)
[2024-10-25] MEDS ORDERED: HYDROcodone 10-APAP 325 TAB PO ONE (16:30)
[2024-10-25 17:14] LABS: CORONAVIRUS COVID-19 AG Negative (NEGATIVE); INFLUENZA A AG Negative (NEGATIVE); INFLUENZA B AG Negative (NEGATIVE)
[2024-10-25 20:06] VITALS: BP 108/77
[2024-10-25] MEDS ORDERED: HyDROXyzine HCl 25 MG Tab PO ONE (20:20)
[2024-10-25] MEDS ORDERED: QUEtiapine Fumarate 100 MG Tab PO SCH (21:00)
[2024-10-25] MEDS ORDERED: Atorvastatin 10 MG Tab PO SCH (21:00)
== END 2024-10-25 22:10 | disposition home or self-care (01) | DRG 885 ==
LOC: ER 21:50 → EOR 10-25 00:13
PROVIDERS: ADMIT Emergency Medicine
DX: F33.2 Major depressive disorder, recurrent severe without psychotic features (principal); R45.851 Suicidal ideations; N39.0 Urinary tract infection, site not specified; F29 Unspecified psychosis not due to a substance or known physiological condition; F20.9 Schizophrenia, unspecified; E11.9 Type 2 diabetes mellitus without complications; I10 Essential (primary) hypertension; E03.9 Hypothyroidism, unspecified; M79.7 Fibromyalgia; G89.29 Other chronic pain; M54.9 Dorsalgia, unspecified; F41.9 Anxiety disorder, unspecified; F40.00 Agoraphobia, unspecified; K21.9 Gastro-esophageal reflux disease without esophagitis; G47.00 Insomnia, unspecified; Z91.040 Latex allergy status; I25.2 Old myocardial infarction; Z88.8 Allergy status to other drugs, medicaments and biological substances; Z79.899 Other long term (current) drug therapy; Z79.84 Long term (current) use of oral hypoglycemic drugs; Z79.82 Long term (current) use of aspirin; Z90.710 Acquired absence of both cervix and uterus; Z79.890 Hormone replacement therapy
CPT/HCPCS: 80053; 80320; 81001; 84439; 84443; 85025; 87077; 87086; 87186; 87428-QW; 93005; 93010; 99285-25; A9270; G0378; G0480

== ENCOUNTER 2024-12-25 10:07 | Observation (INO) | payer OTHER ==
[~2024-12-25] VITALS: Ht 160 cm; Wt 102.1 kg
[~2024-12-25 10:07] MED LIST changes: +B-12 COMPL1000 MCG/2 IM; +DILT60 PO; +ERGO50000 PO; +LEVOTHYROXINE100 M10 PO; +MAGNESIUM OXID400 M4 PO; +MIRTAZAPINE7.5 M5 PO; +Norco 5-325 Ta1 EACH PO; +OLANZAPINE15 M2 PO; +TIMO.5OPSO BOTHEYES
[2024-12-25] MEDS ORDERED: OxyCODONE HCL 5 MG TAB PO ONE (11:00)
[2024-12-25 11:43] LABS: BASOPHILS ABSOLUTE AUTO 0.01 K/mm3 (0.00-0.23); BASOPHILS PERCENT AUTO 0 % (0-2); EOSINOPHILS ABSOLUTE AUTO 0.03 K/mm3 (0.00-0.68); EOSINOPHILS PERCENT AUTO 1 % (0-6); Hematocrit 44.6 % (33.0-51.0); Hemoglobin 16.1 g/dL (11.5-16.0); IMMATURE GRAN ABSOLUTE AUTO 0.01 K/mm3 (0.00-0.10); IMMATURE GRAN PERCENT AUTO 0 % (0-1); LYMPHOCYTES ABSOLUTE AUTO 1.09 K/mm3 (0.84-5.20); LYMPHOCYTES PERCENT AUTO 27 % (21-46); MONOCYTES ABSOLUTE AUTO 0.32 K/mm3 (0.16-1.47); MONOCYTES PERCENT AUTO 8 % (4-13); Mean Corpuscular HGB 32.3 pg (26.0-34.0); Mean Corpuscular HGB Conc 36.1 g/dL (31.5-36.5); Mean Corpuscular Volume 89 fL (80-100); Mean Platelet Volume 10.1 fL (9.1-12.4); NEUTROPHILS PERCENT AUTO 64 % (41-73); Platelet Count 151 K/mm3 (150-400); RDW Coefficient Variation 11.9 % (11.7-14.2); Red Blood Cell Count 4.99 M/mm3 (3.80-5.20); White Blood Cell Count 4.06 K/mm3 (4.00-11.30)
[2024-12-25 11:47] LABS: Source, Urine Clean Catch
[2024-12-25] MEDS ORDERED: Cymbalta20 MG PO (12:02)
[2024-12-25] MEDS ORDERED: EUTHYROX175 MC1 PO (12:02)
[2024-12-25] MEDS ORDERED: FUROSEMIDE20 MG PO (12:02)
[2024-12-25] MEDS ORDERED: HYDROCODONE-AC1 EAC7 PO (12:03)
[2024-12-25] MEDS ORDERED: INSULIN GL100 UNIT/2 SC (12:03)
[2024-12-25 12:04] LABS: Appearance, Urine Clear (Clear); Bilirubin, Urine Neg (Neg); Blood, Urine Neg (Neg); Color, Urine Yellow (P-Yellow); Glucose Qualitative, Urine 2+ (Neg); Ketones, Urine 3+ (Neg); Leukocyte Esterase, Urine 1+ (Neg); Nitrite, Urine Neg (Neg); Protein, Urine 1+ (Neg); Urobilinogen, Urine NORM (Normal)
[2024-12-25 12:16] LABS: Ethanol (Alcohol), Blood, Med <3 mg/dL; Salicylate <1.7 mg/dL (2.8-20.0)
[2024-12-25 12:18] LABS: U Opiates Screen DETECTED
[2024-12-25 12:18] LABS: Acetaminophen, Random <2.0 ug/mL (10.0-30.0); Alanine Aminotransfer (ALT/SGP 21 U/L (12-78); Albumin, Blood 4.2 g/dL (3.4-5.0); Albumin/Globulin Ratio 1.2 (0.8-1.8); Alk Phos 81 U/L (50-136); Anion Gap 17 mmol/L (3-11); Aspartate Aminotrans (AST/SGOT 22 U/L (12-37); Bilirubin, Total 1.3 mg/dL (0.1-1.0); Blood Urea Nitrogen 15 mg/dL (8-24); Bun/Creatinine Ratio 16.7 (12.0-20.0); CO2, Blood 20 mmol/L (21-32); Calcium, Blood 9.7 mg/dL (8.5-10.1); Chloride, Blood 100 mmol/L (98-108); Globulin, Blood 3.6 g/dL (2.2-4.0); Glomerular Filtration Rate 72 (60-); Glucose, Blood 239 mg/dL (70-99); Potassium, Blood 3.5 mmol/L (3.5-5.5); Sodium, Blood 133 mmol/L (136-145); Total Protein, Blood 7.8 g/dL (6.4-8.2)
[2024-12-25 12:19] LABS: U Amphetamine Screen Not Detected; U Barbituate Screen Not Detected; U Benzodiazapine Screen Not Detected; U Buprenorphine Screen Not Detected; U Cannabinoids Screen Not Detected; U Cocaine Screen Not Detected; U Methadone Screen Not Detected; U Methamphetamine Screen Not Detected; U Oxycodone Screen Not Detected; U Phencyclidine Screen Not Detected
[2024-12-25 12:22] LABS: Mucus Light (0-Heavy)
[2024-12-25 12:23] LABS: Bacteria Few /hpf; Red Blood Cells, Urine 0-2 /hpf (0-2); Squamous Epithelial Cells Few /hpf (Few); White Blood Cells, Urine 0-2 /hpf (0-5)
[2024-12-25] MEDS ORDERED: NS 1,000 ML IV SCH (12:30)
[2024-12-25 12:50] LABS: Base Excess Venous -0.1 mmol/L; Bicarbonate Venous 25.3 mmol/L (24.0-30.0); PCO2 Venous 30.9 mmHg (38-42); pH Blood Venous 7.49 (7.34-7.37)
[2024-12-25] MEDS ORDERED: MetFORMIN HCl 500 mg PO SCH (17:00)
[2024-12-25] MEDS ORDERED: LORazepam 0.5 MG Tab PO ONE (17:30)
[2024-12-25] MEDS ORDERED: OxyCODONE HCL 5 MG TAB PO PRN (19:30)
[2024-12-25 19:57] LABS: CORONAVIRUS COVID-19 AG Negative (NEGATIVE); INFLUENZA A AG Negative (NEGATIVE); INFLUENZA B AG Negative (NEGATIVE)
[2024-12-25] MEDS ORDERED: DULoxetine HCL 30 MG Cap DR PO SCH (21:00)
[2024-12-25] MEDS ORDERED: QUEtiapine Fumarate 100 MG Tab PO SCH (21:00)
[2024-12-25] MEDS ORDERED: dilTIAZem HCL 60 MG TAB PO SCH (21:00)
[2024-12-26] MEDS ORDERED: OxyCODONE HCL 5 MG TAB PO SCH
[2024-12-26] MEDS ORDERED: Levothyroxine Sodium 0.175 MG TAB PO SCH (06:00)
[2024-12-26] MEDS ORDERED: Famotidine 20 MG Tab PO SCH (09:00)
[2024-12-26] MEDS ORDERED: Insulin Glargine-Yfgn 100 Unit/mL 3 ML SYR SC SCH (09:00)
[2024-12-26] MEDS ORDERED: Aspirin 81 MG TabEC PO SCH (09:00)
[2024-12-26] MEDS ORDERED: Timolol 0.5% Opth Soln 5 ML BOTHEYES SCH (09:00)
[2024-12-26] MEDS ORDERED: Losartan Potassium 50 MG Tab PO SCH (09:00)
[2024-12-26] MEDS ORDERED: Furosemide 20 MG Tab PO SCH (09:00)
[2024-12-26] MEDS ORDERED: Mirtazapine 15 MG Tab PO PRN (16:25)
[2024-12-26] MEDS ORDERED: Acetaminophen 325 MG TABLET PO PRN (16:40)
[2024-12-26] MEDS ORDERED: FLU VACC TS2024-25(6MOS UP)/PF 45 MCG/0.5 ML SYRINGE IM SCH (16:40)
[2024-12-26] MEDS ORDERED: DULoxetine HCL 60 MG Capsule DR PO SCH (21:00)
[2024-12-26] MEDS ORDERED: DULoxetine HCL 20 MG Cap DR PO SCH (21:00)
[2024-12-26] MEDS ORDERED: Atorvastatin 10 MG Tab PO SCH (21:00)
[2024-12-26 23:46] VITALS: BP 135/80
[2024-12-27 04:13] VITALS: BP 129/60
--- NOTE | 2024-12-27 06:09 | NUR ---
SHIFT SUMMARY: Pt is admitted for SI with a plan and is a full code. Is alert and able to make needs known. ADLs have been SBA. states pain is 8/10 mostly in back and legs. This is roughly baseline per her report. She was assessed as a HIGH SI. currently has 1:1 sitter. Room was mitigated for SI. came to the floor about 2345.
[2024-12-27 07:38] VITALS: BP 122/63
[2024-12-27] MEDS ORDERED: Clopidogrel Bisulfate 75 MG Tab PO SCH (09:00)
[2024-12-27 15:06] VITALS: BP 124/73
--- NOTE | 2024-12-27 18:10 | NUR ---
PT PLEASANT TODAY. PAIN MANAGED WITH AVAIL MEDS TODAY. EATING WELL. SEEN BY DR AND PSYCH DR. VOLUNTARY HOLD IN PLACE. PENDING TRANSFER TO [facility] IS PLAN PER DR Snyder INDEPENDANT IN ROOM. 1:1 SITTER FOR S/I. NO NEW CONCERNS NOTED. BED INLOW POSITION, CALLLITE IN REACH, CALLS APPROP
[2024-12-27 19:15] VITALS: BP 126/78
[2024-12-28 04:46] VITALS: BP 109/78
--- NOTE | 2024-12-28 05:50 | NUR ---
SHIFT SUMMARY: Pt is admitted for SI with a plan and is a full code. Is alert and able to make needs known. ADLs have been SBA. states pain is 8/10 mostly in back and legs. This is roughly baseline per her report. currently has 1:1 sitter. Room was mitigated for SI. she stated during SI assessment that she did not have a plan or have thoughts of harming self. She did not feel as overwhelmed as she did upon admit for those reasons. She did express that she was anxiety about the next step in her treatment process and being somewhat scared.
[2024-12-28 07:21] VITALS: BP 138/65
[2024-12-28] MEDS ORDERED: HYDROcodone 10-APAP 325 TAB PO PRN (15:05)
--- NOTE | 2024-12-28 15:10 | NUR ---
PT'S RIDE WAS SCHEDULED AT 1530. PT STATED THAT HE WAS NOT WILLING TO WAIT THAT LONG AND HE HAD TO GET TO THE BANK. HE WHEELED HIMSELF OUT OF THE HOSPITAL, WITH HIS BAGS OF BELONGINGS AND HIS NEW WHEELCHAIR FROM CARE MANAGEMENT. IV WAS PREVIOUSLY REMOVED BY LOFT PATTERNMAKER II. PT WAS TOLERATING ACTIVITY WELL ON ROOM AIR. GOOD APPETITE.
[2024-12-28 15:52] VITALS: BP 137/84
[2024-12-28 16:36] VITALS: BP 137/84
--- NOTE | 2024-12-28 17:06 | NUR ---
PLAN IS FOR PT TO DISCHARGE TO [facility] AT 20:00 TODAY. RN CALLED RN TO RN REPORT TO DAVIS AT [phone].
--- NOTE | 2024-12-28 17:11 | NUR ---
SHIFT SUMMARY PT A& O X4. ADMITTED FOR SUICIDE ATTEMPT, TRIED TO CUT HER WRISTS WITH A KNIFE AND REALIZED WHAT WAS HAPPENING, CALLED CRISIS LINE. DURING OUR SUICIDE RISK RE-ASSESSMENT, SHE DENIED HAVING A PLAN OR HAVING THOUGHTS OF SELF-HARM. SHE IS PREPARING FOR DISCHARGE TO [facility]. PT HAS SPENT THE SHIFT WITH A 1:1 SITTER FOR SAFETY. SHE HAS STRESS URINARY INCONTINENCE, CONTINENT OF BOWEL. NO IV ACCESS. TOLERATING PO INTAKE. INDEPENDENT TO BATHROOM. PT HAS A WALKER IN THE ROOM WITH HER FROM HOME, SHE WILL TAKE WITH HER TO [facility].
[2024-12-28 17:53] VITALS: BP 137/84
[2024-12-28 19:43] VITALS: BP 138/93
--- NOTE | 2024-12-28 21:35 | NUR ---
PT LEFT W/SECURE TRANSPORT VIA W/C AND ALL BELONGINGS + PERSONAL WALKER IN HER POSSESSION AT THE TIME. SHE APPEARED W/O S/S DISTRESS AND DENIED PAIN AND COMPLAINTS PRIOR TO DEPARTURE.
== END 2024-12-28 21:30 ==
LOC: ER 10:07 → ERHOLD 10:08 → EOR 10:08 → ERHOLD 12-26 16:35 → ER 12-26 16:35 → MEDS 12-26 16:35 → ERHOLD 12-26 23:46 → MEDS 12-28 21:30
PROVIDERS: Student in an Organized Health Care Education/Training Program; ADMIT Internal Medicine
DX: F33.3 Major depressive disorder, recurrent, severe with psychotic symptoms (principal); R45.851 Suicidal ideations; G30.9 Alzheimer's disease, unspecified; F02.A0 Dementia in other diseases classified elsewhere, mild, without behavioral disturbance, psychotic disturbance, mood disturbance, and anxiety; F43.12 Post-traumatic stress disorder, chronic; E03.9 Hypothyroidism, unspecified; I10 Essential (primary) hypertension; E11.9 Type 2 diabetes mellitus without complications; G89.29 Other chronic pain; K21.9 Gastro-esophageal reflux disease without esophagitis; E78.5 Hyperlipidemia, unspecified; Z91.040 Latex allergy status; Z88.1 Allergy status to other antibiotic agents; Z79.899 Other long term (current) drug therapy; Z79.4 Long term (current) use of insulin; Z79.84 Long term (current) use of oral hypoglycemic drugs
CPT/HCPCS: 80053; 80320; 81001; 81025; 82010; 82803; 82947; 85025; 87086; 87428-QW; 93005; 93010; 96360; 99285-25; A9270; G0378; G0480; J1815; J7030

== ENCOUNTER 2025-01-23 12:18 | Observation (INO) | payer OTHER ==
[~2025-01-23] VITALS: Ht 162.6 cm; Wt 103.4 kg
[~2025-01-23 12:18] MED LIST changes: +Cymbalta20 MG PO; +EUTHYROX175 MC1 PO; +FUROSEMIDE20 MG PO; +HYDROCODONE-AC1 EAC7 PO; +INSULIN GL100 UNIT/2 SC
[2025-01-23] MEDS ORDERED: Diphth,Pertuss(Acell),Tet Vac 0.5 ML VIAL IM ONE (13:40)
[2025-01-23 13:41] LABS: BASOPHILS ABSOLUTE AUTO 0.01 K/mm3 (0.00-0.23); BASOPHILS PERCENT AUTO 0 % (0-2); EOSINOPHILS ABSOLUTE AUTO 0.05 K/mm3 (0.00-0.68); EOSINOPHILS PERCENT AUTO 2 % (0-6); Hematocrit 44.6 % (33.0-51.0); Hemoglobin 15.3 g/dL (11.5-16.0); IMMATURE GRAN PERCENT AUTO 0 % (0-1); LYMPHOCYTES ABSOLUTE AUTO 1.08 K/mm3 (0.84-5.20); LYMPHOCYTES PERCENT AUTO 35 % (21-46); MONOCYTES ABSOLUTE AUTO 0.23 K/mm3 (0.16-1.47); MONOCYTES PERCENT AUTO 7 % (4-13); Mean Corpuscular HGB 31.3 pg (26.0-34.0); Mean Corpuscular HGB Conc 34.3 g/dL (31.5-36.5); Mean Corpuscular Volume 91 fL (80-100); Mean Platelet Volume 10.1 fL (9.1-12.4); NEUTROPHILS ABSOLUTE AUTO 1.76 K/mm3 (1.96-9.15); NEUTROPHILS PERCENT AUTO 56 % (41-73); Platelet Count 149 K/mm3 (150-400); RDW Coefficient Variation 12.7 % (11.7-14.2); RDW Standard Deviation 42.3 fL (35.1-46.3); Red Blood Cell Count 4.89 M/mm3 (3.80-5.20); White Blood Cell Count 3.13 K/mm3 (4.00-11.30)
[2025-01-23 13:43] LABS: Ethanol (Alcohol), Blood, Med <3 mg/dL; Salicylate <1.7 mg/dL (2.8-20.0)
[2025-01-23 13:47] LABS: Acetaminophen, Random <2.0 ug/mL (10.0-30.0); Alanine Aminotransfer (ALT/SGP 31 U/L (12-78); Albumin, Blood 3.8 g/dL (3.4-5.0); Alk Phos 97 U/L (50-136); Anion Gap 13 mmol/L (3-11); Aspartate Aminotrans (AST/SGOT 25 U/L (12-37); Bilirubin, Total 0.7 mg/dL (0.1-1.0); Blood Urea Nitrogen 11 mg/dL (8-24); Bun/Creatinine Ratio 15.3 (12.0-20.0); CO2, Blood 23 mmol/L (21-32); Calcium, Blood 9.1 mg/dL (8.5-10.1); Chloride, Blood 105 mmol/L (98-108); Creatinine, Blood 0.72 mg/dL (0.40-1.00); Globulin, Blood 3.8 g/dL (2.2-4.0); Glomerular Filtration Rate 94 (60-); Glucose, Blood 192 mg/dL (70-99); Potassium, Blood 3.9 mmol/L (3.5-5.5); Sodium, Blood 137 mmol/L (136-145); Total Protein, Blood 7.6 g/dL (6.4-8.2)
[2025-01-23 13:56] LABS: Source, Urine Clean Catch
[2025-01-23 14:04] LABS: Appearance, Urine Clear (Clear); Bilirubin, Urine Neg (Neg); Blood, Urine 1+ (Neg); Color, Urine Yellow (P-Yellow); Glucose Qualitative, Urine 4+ (Neg); Ketones, Urine 3+ (Neg); Leukocyte Esterase, Urine 1+ (Neg); Nitrite, Urine Neg (Neg); Protein, Urine Neg (Neg); Specific Gravity, Urine 1.015 (1.003-1.022); Urobilinogen, Urine NORM (Normal)
[2025-01-23 14:36] LABS: U Amphetamine Screen Not Detected; U Barbituate Screen Not Detected; U Benzodiazapine Screen Not Detected; U Buprenorphine Screen Not Detected; U Cannabinoids Screen Not Detected; U Cocaine Screen Not Detected; U Methadone Screen Not Detected; U Methamphetamine Screen Not Detected; U Opiates Screen DETECTED; U Oxycodone Screen Not Detected; U Phencyclidine Screen Not Detected
[2025-01-23 14:54] LABS: Bacteria Mod /hpf; Red Blood Cells, Urine 0-2 /hpf (0-2); Squamous Epithelial Cells Many /hpf (Few)
[2025-01-23 14:56] LABS: Amorphous Light (0-Heavy); Mucus Light (0-Heavy)
[2025-01-23] MEDS ORDERED: CEPH500 PO (15:09)
[2025-01-23] MEDS ORDERED: Cephalexin Monohydrate 500 MG Cap PO SCH (15:15)
[2025-01-23] MEDS ORDERED: Gabapentin 300 MG Cap PO SCH (15:35)
[2025-01-23] MEDS ORDERED: HYDROcodone 10-APAP 325 TAB PO PRN (15:35)
[2025-01-23] MEDS ORDERED: DULoxetine HCL 30 MG Cap DR PO SCH (21:00)
[2025-01-23] MEDS ORDERED: dilTIAZem HCL 30 MG TAB PO SCH (21:00)
[2025-01-23] MEDS ORDERED: Timolol 0.5% Opth Soln 5 ML BOTHEYES SCH (21:00)
[2025-01-23] MEDS ORDERED: QUEtiapine Fumarate 200 MG Tab PO SCH (21:00)
[2025-01-23] MEDS ORDERED: Atorvastatin 10 MG Tab PO SCH (21:00)
[2025-01-24] MEDS ORDERED: MetFORMIN HCl 500 mg PO SCH (08:00)
[2025-01-24] MEDS ORDERED: Losartan Potassium 50 MG Tab PO SCH (09:00)
[2025-01-24] MEDS ORDERED: Levothyroxine Sodium 0.175 MG TAB PO SCH (09:00)
[2025-01-24] MEDS ORDERED: Cephalexin Monohydrate 500 MG Cap PO SCH (09:00)
[2025-01-24] MEDS ORDERED: Famotidine 20 MG Tab PO SCH (09:00)
[2025-01-24] MEDS ORDERED: Clopidogrel Bisulfate 75 MG Tab PO SCH (09:00)
[2025-01-24] MEDS ORDERED: Aspirin 325 MG Tab PO SCH (09:00)
[2025-01-25 11:30] VITALS: BP 114/89
== END 2025-01-25 19:22 ==
LOC: ER 12:18 → EOR 12:19
PROVIDERS: Student in an Organized Health Care Education/Training Program; ADMIT Psychiatry & Neurology Psychiatry
DX: F33.2 Major depressive disorder, recurrent severe without psychotic features (principal); R45.851 Suicidal ideations; S50.812A Abrasion of left forearm, initial encounter; E11.9 Type 2 diabetes mellitus without complications; I10 Essential (primary) hypertension; E03.9 Hypothyroidism, unspecified; G89.29 Other chronic pain; I25.2 Old myocardial infarction; K21.9 Gastro-esophageal reflux disease without esophagitis; N39.0 Urinary tract infection, site not specified; W45.8XXA Other foreign body or object entering through skin, initial encounter
CPT/HCPCS: 80053; 80320; 81001; 81025; 82947; 85025; 87086; 90471; 90715; 99285-25; A9270; G0378; G0480

== ENCOUNTER 2025-04-15 13:27 | Emergency (ER) | payer OTHER ==
[~2025-04-15] VITALS: Ht 162.6 cm; Wt 102.1 kg
[~2025-04-15 13:27] MED LIST changes: +HYDROCODONE-AC1 EA19
[2025-04-15 14:29] LABS: Source, Urine Clean Catch
[2025-04-15 14:31] LABS: Color, Urine Yellow (P-Yellow); Glucose Qualitative, Urine 1+ (Neg); Ketones, Urine 2+ (Neg); Leukocyte Esterase, Urine 3+ (Neg); Protein, Urine 3+ (Neg); Specific Gravity, Urine 1.025 (1.003-1.022); Urobilinogen, Urine NORM (Normal)
[2025-04-15 14:40] LABS: BASOPHILS ABSOLUTE AUTO 0.02 K/mm3 (0.00-0.23); BASOPHILS PERCENT AUTO 0 % (0-2); EOSINOPHILS ABSOLUTE AUTO 0.08 K/mm3 (0.00-0.68); EOSINOPHILS PERCENT AUTO 2 % (0-6); Hematocrit 48.4 % (33.0-51.0); Hemoglobin 16.9 g/dL (11.5-16.0); IMMATURE GRAN ABSOLUTE AUTO 0.01 K/mm3 (0.00-0.10); IMMATURE GRAN PERCENT AUTO 0 % (0-1); LYMPHOCYTES ABSOLUTE AUTO 1.93 K/mm3 (0.84-5.20); LYMPHOCYTES PERCENT AUTO 39 % (21-46); MONOCYTES ABSOLUTE AUTO 0.36 K/mm3 (0.16-1.47); MONOCYTES PERCENT AUTO 7 % (4-13); Mean Corpuscular HGB Conc 34.9 g/dL (31.5-36.5); Mean Corpuscular Volume 92 fL (80-100); NEUTROPHILS ABSOLUTE AUTO 2.59 K/mm3 (1.96-9.15); NEUTROPHILS PERCENT AUTO 52 % (41-73); NRBC ABSOLUTE 0.00 K/mm3 (0.00-0.02); NRBC Auto 0.0 /100 WBC (0.0-0.2); Platelet Count 185 K/mm3 (150-400); RDW Coefficient Variation 13.2 % (11.7-14.2); RDW Standard Deviation 44.5 fL (35.1-46.3)
[2025-04-15 14:51] LABS: Acetaminophen, Random <2.0 ug/mL (10.0-30.0); Alanine Aminotransfer (ALT/SGP 31 U/L (12-78); Albumin, Blood 4.3 g/dL (3.4-5.0); Albumin/Globulin Ratio 1.1 (0.8-1.8); Anion Gap 13 mmol/L (3-11); Aspartate Aminotrans (AST/SGOT 33 U/L (12-37); Bilirubin, Total 1.0 mg/dL (0.1-1.0); Blood Urea Nitrogen 7 mg/dL (8-24); CO2, Blood 21 mmol/L (21-32); Calcium, Blood 9.9 mg/dL (8.5-10.1); Chloride, Blood 104 mmol/L (98-108); Creatinine, Blood 0.91 mg/dL (0.40-1.00); Ethanol (Alcohol), Blood, Med 5 mg/dL; Globulin, Blood 3.9 g/dL (2.2-4.0); Glucose, Blood 205 mg/dL (70-99); Potassium, Blood 3.9 mmol/L (3.5-5.5); Salicylate <1.7 mg/dL (2.8-20.0); Sodium, Blood 134 mmol/L (136-145); Total Protein, Blood 8.2 g/dL (6.4-8.2)
[2025-04-15 14:58] LABS: Bilirubin, Urine 1+ (Neg)
[2025-04-15 14:59] LABS: White Blood Cells, Urine 50-100 /hpf (0-5)
[2025-04-15 15:09] LABS: U Opiates Screen DETECTED
[2025-04-15 15:10] LABS: U Amphetamine Screen Not Detected; U Barbituate Screen Not Detected; U Benzodiazapine Screen Not Detected; U Cannabinoids Screen Not Detected; U Cocaine Screen Not Detected; U Methadone Screen Not Detected; U Methamphetamine Screen Not Detected; U Oxycodone Screen DETECTED; U Phencyclidine Screen Not Detected
[2025-04-15 15:11] LABS: U Buprenorphine Screen Not Detected
[2025-04-15] MEDS ORDERED: Nitrofurantoin/Nitrofuran Mac 100 MG Cap PO ONE ×2 (15:20→20:00)
[2025-04-15] MEDS ORDERED: Ketorolac Tromethamine 15mg Vial IV ONE (19:55)
[2025-04-15] MEDS ORDERED: HYDROcodone 5-APAP 325 TAB PO PRN (20:10)
[2025-04-15] MEDS ORDERED: HYDROcodone 5-APAP 325 TAB PO ONE (20:10)
[2025-04-17 13:18] LABS: CORONAVIRUS COVID-19 AG Negative (NEGATIVE)
[2025-04-17 21:00] VITALS: BP 151/107
== END 2025-04-17 21:20 ==
LOC: ER 13:27
PROVIDERS: Student in an Organized Health Care Education/Training Program
DX: F20.9 Schizophrenia, unspecified (principal); N30.00 Acute cystitis without hematuria; E11.65 Type 2 diabetes mellitus with hyperglycemia; E03.9 Hypothyroidism, unspecified; I25.2 Old myocardial infarction; I10 Essential (primary) hypertension; K21.9 Gastro-esophageal reflux disease without esophagitis; Z88.1 Allergy status to other antibiotic agents; Z91.040 Latex allergy status; Z88.8 Allergy status to other drugs, medicaments and biological substances; Z79.84 Long term (current) use of oral hypoglycemic drugs; Z79.02 Long term (current) use of antithrombotics/antiplatelets; Z79.4 Long term (current) use of insulin; Z79.890 Hormone replacement therapy; Z79.82 Long term (current) use of aspirin; Z79.899 Other long term (current) drug therapy
CPT/HCPCS: 80053; 80320; 81001; 81025; 82947; 85025; 87077; 87086; 87186; 87426-QW; 99285; A9270; G0480

== ENCOUNTER → 2025-08-19 | Outpatient (CLI) | payer OTHER ==
[2025-08-19 17:17] LABS: Source, Urine Voided
[2025-08-19 19:25] LABS: Bilirubin, Urine Neg (Neg); Color, Urine Yellow (P-Yellow); Glucose Qualitative, Urine 4+ (Neg); Ketones, Urine Neg (Neg); Leukocyte Esterase, Urine 3+ (Neg); Protein, Urine 1+ (Neg); Specific Gravity, Urine 1.020 (1.003-1.022); Urobilinogen, Urine NORM (Normal)
[2025-08-19 19:48] LABS: White Blood Cells, Urine 25-50 /hpf (0-5)
== END ==
LOC: LAB SHORT 17:15 → LAB 17:15
DX: R30.0 Dysuria (principal); R10.A0 Flank pain, unspecified side
CPT/HCPCS: 81001; 87077; 87086; 87186